=== PATIENT | male | born 1940 | race Caucasian/White ===

== ENCOUNTER 2019-09-16 02:46 | Inpatient (IN) | payer MEDICARE, SELFPAY ==
[2019-09-16] VITALS (22 sets, daily range): BP systolic 139–197; BP diastolic 70–111; PULSE 58–119; RESP 13–20; TEMP 36.3–37.2; O2SAT 94–98; BMI 31.1
--- NOTE | ~2019-09-16 | CT_ITS ---
EXAMINATION: CT brain wo con DATE: 09/16/2019 02:48 INDICATION: Slurred speech. TECHNIQUE: Computed tomography (CT) of the head was performed without intravenous contrast. The mA wa s adjusted according to patient size. Iterative reconstruction technique was employed. The dose-lengt h product was 681.00 mGy-cm. COMPARISON: None FINDINGS: There are scattered areas of low attenuation in the cerebral white matter. There are areas of cystic encephalomalacia in the deep white matter of the frontal lobes bilaterally. There is no int racranial hemorrhage, acute infarction, or abnormal intracranial mass lesion. The ventricles are norm al in size. The mastoid air cells are normal. The paranasal sinuses are clear. The orbits are normal. IMPRESSION: 1. Extensive nonspecific cerebral white matter disease, which likely represents chronic small vessel ischemic disease. 2. 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 Reviewed, dictated and finalized at location A. ING CLERK IMPRESSION: 1. Extensive nonspecific cerebral white matter disease, which likely represents chronic small vessel ischemic disease. 2. Cystic encephalomalacia in the deep white matter of the frontal lobes bilate rally.
--- NOTE | ~2019-09-16 | CT_ITS ---
EXAMINATION: CTA brain carotid DATE: 09/16/2019 03:48 INDICATION: Slurred speech. TECHNIQUE: Computed tomographic angiography (CTA) of the head was performed without and with 100 mL O mnipaque-350 intravenous contrast. CTA of the neck was performed with intravenous contrast. Automated exposure control and iterative reconstruction technique were employed. The dose-length product was 1 279.37 mGy-cm. Maximum intensity projection and volume rendered 3D-reconstructions were created by e technologist on a separate workstation. COMPARISON: Head CT 09/19/2018, brain MRI 09/20/2018 FINDINGS: HEAD CTA: There are scattered areas of low attenuation in the cerebral white matter. There are areas of cystic encephalomalacia in the deep white matter of the frontal lobes. There are old lacunar infar cts in the bilateral basal ganglia. There is no intracranial hemorrhage, acute infarction, or abnorma l intracranial mass lesion. The ventricles are normal in size. There is mild mucosal thickening in th e paranasal sinuses. The orbits are normal. The mastoid air cells are normal. Left vertebral artery i s dominant. There is no significant stenosis of basilar artery or the posterior cerebral arteries. Th e posterior communicating arteries are normal. There is no significant stenosis of the intracranial i nternal carotid arteries or anterior or middle cerebral arteries. Anterior communicating artery is no rmal. There is no aneurysm. NECK CTA: There are no pathologically enlarged lymph nodes. There is a severe stenosis of the vertebr al arteries, but sensitivity is decreased by the late phase of contrast opacification. There is mild plaque in the proximal internal carotid arteries. There is 0% stenosis of the proximal right interna l carotid artery relative to normal distal artery lumen diameter (NASCET criteria). There is 0% steno sis of the proximal left internal carotid artery relative to normal distal artery lumen diameter. The re is moderate cervical spondylosis. IMPRESSION: 1. Extensive nonspecific cerebral white matter disease, which likely represents chronic small vessel ischemic disease. 2. Areas of cystic encephalomalacia in the deep white matter of the frontal lobes. Old lacunar infarc ts in the bilateral basal ganglia. 3. No aneurysm or significant intracranial arterial stenosis. 4. 0% stenosis of the proximal internal carotid arteries relative to normal distal artery lumen diam eters (NASCET criteria). Reviewed, dictated and finalized at location A. RINTENDENT DIVISION IMPRESSION: 1. Extensive nonspecific cerebral white matter disease, which likely represents chronic small vessel ischemic disease. 2. Areas of cystic encephalomalacia in the deep white matter of the frontal lob es. Old lacunar infarcts in the bilateral basal ganglia. 3. No aneurysm or significant intracranial arterial stenosis. 4. 0% stenosis of the proximal internal carotid arteries relative to normal di stal artery lumen diameters (NASCET criteria).
--- NOTE | ~2019-09-16 | MR_ITS ---
EXAMINATION: MR brain/brain stem wo/w con DATE: 09/16/2019 10:58 INDICATION: Dysarthria. TECHNIQUE: Magnetic resonance imaging (MRI) of the brain and brainstem was performed without and with 19 mL MultiHance intravenous contrast. Sequences included sagittal and axial T1-weighted FSE, axial diffusion-weighted FS EPI, axial T2*-weighted GRE, axial T2-weighted FLAIR Propeller, and axial T2-we ighted Propeller. Postcontrast sequences included axial and coronal T1-weighted FSE. Apparent diffusi on coefficient (ADC) maps were created. COMPARISON: Brain MRI 09/20/2018, head CT 09/16/2019 FINDINGS: There are small foci of old microhemorrhage in the chai. There are scattered areas of nonsp ecific increased T2-weighted signal intensity in the cerebral white matter. There are areas of cystic encephalomalacia involving the deep white matter of the frontal and parietal lobes. There are old la cunar infarcts in the bilateral basal ganglia. The orbits are normal. There is mild mucosal thickenin g in the paranasal sinuses. The mastoid air cells are normal. IMPRESSION: 1. Extensive nonspecific cerebral white matter disease, which likely represents chronic small vessel ischemic disease. 2. Areas of cystic encephalomalacia in the deep white matter of the frontal and parietal lobes. Old l acunar infarcts in the bilateral basal ganglia. 3. Foci of old microhemorrhage in the chai, which is most commonly secondary to hypertension. Reviewed, dictated and finalized at location A. ER TECHNOLOGY TEACHER IMPRESSION: 1. Extensive nonspecific cerebral white matter disease, which likely represents chronic small vessel ischemic disease. 2. Areas of cystic encephalomalacia in the deep white matter of the frontal and parietal lobes. Old lacunar infarcts in the bilateral basal ganglia. 3. Foci of old microhemorrhage in the chai, which is most commonly secondary to hypertension.
--- NOTE | 2019-09-16 02:36 | ED.NEUROSD ---
HPI - Neuro Symptoms/Deficit General Chief Complaint: Neuro Symptoms/Deficit Stated Complaint: slurred speech Time Seen by Provider: 09/16/19 02:46 Source: patient Mode of arrival: EMS Limitations: no limitations History of Present Illness HPI Narrative: A 79 y/o male presents to the ED, via EMS, with c/o slurred speech. He states that he woke up today at 0130 and had a weird feeling in his head and was shaky. Pt adds that he feels the shakiness, but is not physically shaking. He noticed he had slurred speech and contacted EMS. His last known normal was 2200 yesterday. Pt reports motion sickness, but denies numbness, otalgia, tinnitus, CP, SOB, and weakness. He has a PMHx of HTN, TIA, and CVA. Pt has balance issues, but notes that this is normal for him. Onset (ago): hour(s) (1) Last Observed Normal: 22:00 Location: speech Context: other (Awoke with symptoms) Associated symptoms: other ( Motion sickness, shaky, weird feeling in head) Related Data Allergies Allergy/AdvReac Type Severity Reaction Status Date / Time No Known Allergies Allergy Verified 09/16/19 03:01 Review of Systems Review of Systems: All systems reviewed & are unremarkable except as noted in HPI and below Constitutional: Constitutional: Reports other ( Motion sickness, shaky) ENT: Denies otalgia and Denies tinnitus Cardiovascular: Cardiovascular: Denies chest pain Respiratory: Respiratory: Denies dyspnea Neurologic: Reports Abnormal speech present (Slurred), Denies numbness, Denies weakness and Reports other ( Weird feeling in head) [facility] Past Medical History Medical History (Updated 09/16/19 @ 05:39 by Yassine Hodge MD) Cerebellar ataxia CVA (cerebral vascular accident) HTN (hypertension) Hx of Diggs's palsy TIA (transient ischemic attack) Surgical History Surgical History No pertinent past surgical history Family History Family History (Updated 09/16/19 @ 05:27 by Casey Moody MD) Father CKD (chronic kidney disease) Social History Social History Smoking status: Never smoker Alcohol intake: never Substance use: never Gender identity (if verbalized by the patient): Male Spiritual care concerns: No Agree to blood products: Yes Exam Const: General: no acute distress and alert Nutritional Appearance: well nourished Orientation/consciousness: patient oriented x3 HENMT: Mouth: Yes dry mucous membranes Eyes: Conjunctivae: conjunctivae normal Pupils: Equal, round and reactive pupils present Other: nystagmus Resp: Effort & Inspection: normal respiratory effort Auscultation: clear to auscultation bilaterally Cardio: Rate: regular rate Rhythm: regular rhythm GI: GI Palp: Yes Soft to palpation and No Tenderness to palpation present (GI) Neuro: General: patient oriented x3 and moves all extremities Cranial nerves: Yes Facial sensation intact/muscles of mastication intact, Yes Normal facial strength present, Yes facial symmetry and Yes Nystagmus present Cognition (Neuro): normal cognition Speech: Abnormal speech present slurred and other Motor exam (neuro): 5/5 motor strength present throughout Course Vital Signs Vital signs: Vital Signs Temperature 36.9 C 09/16/19 02:50 Pulse Rate 99 09/16/19 02:50 Respiratory Rate 20 09/16/19 02:50 Blood Pressure 195/111 H 09/16/19 02:50 Pulse Oximetry 96 09/16/19 02:50 Temperature 36.7 C 09/16/19 04:52 Pulse Rate 98 09/16/19 04:52 Respiratory Rate 20 09/16/19 04:52 Blood Pressure 146/83 H 09/16/19 04:52 Pulse Oximetry 97 09/16/19 04:52 MDM - Neuro Symptoms/Deficit MDM Narrative Medical decision making narrative: Symptoms are concerning for a stroke, although it is not clear cut and he is out of the window for TPA. I will get a CTA and if there is a large vessel occlusion I will call a center that has interventional ca
--- NOTE | 2019-09-16 02:56 | ECG_ITS ---
Measurements Intervals [place] Rate: 93 P: 72 MO: 145 QRS: -59 QRSD: 153 T: 9 QT: 398 QTc: 496 Interpretive Statements SINUS RHYTHM RIGHT BUNDLE BRANCH BLOCK LEFT ANTERIOR FASCICULAR BLOCK BASELINE ARTIFACT- II, III, AVR, AVL, AVF, V1-V3, V5 ABNORMAL ECG Electronically Signed On 09-16-2019 8:21:40 SOCIAL MEDIA EDITOR by Benedict Painting D.O.
[2019-09-16] MEDS: SODIUM CHLORIDE 0.9% IV 1,000 ML 999 ML IV CONT (03:05)
[2019-09-16] MEDS: ONDANSETRON INJ 4 MG/2 ML VIAL IV PUSH (03:06)
[2019-09-16] MEDS: ASPIRIN 81 MG CHEWABLE TABLET 324 MG PO (03:06)
[2019-09-16 03:18] LABS: Basophils Absolute Auto 0.1 K/mm3 (0.0-0.1); Basophils Percent Auto 1.1 % (0.2-1.2); Eosinophils Absolute Auto 0.7 K/mm3 (0-0.3); Eosinophils Percent Auto 9.1 % (0-4.4); Hematocrit 50.3 % (42.0-52.0); Hemoglobin 16.7 g/dL (14.0-18.0); Immature Granulocyte Absolute 0.01 K/mm3 (0.00-0.031); Immature Granulocyte Percent A 0.1 % (0-0.5); Lymphocytes Absolute Auto 2.96 K/mm3 (0.9-3.2); Lymphocytes Percent Auto 40.1 % (18.3-44.2); Mean Corpuscular HGB Conc 33.2 g/dl (32-36); Mean Corpuscular Hemoglobin 31.1 pg (26-34); Mean Corpuscular Volume 93.7 fl (80-100); Monocytes Absolute Auto 0.7 K/mm3 (0.1-0.6); Monocytes Percent Auto 9.5 % (2.6-8.5); Neutrophils Percent Auto 40.1 % (45.5-73.1); Platelet Count Result 245 k/mm3 (150-375); Red Blood Count 5.37 M/mm3 (4.6-6.20); Red Cell Distribution Width 13.8 % (11.5-14.5); White Blood Count 7.4 K/mm3 (4.5-10.0)
--- NOTE | 2019-09-16 03:18 | PC.NURSE ---
Patient unable to provide a urine specimen at this time. Patient a/o x3. Patient refusing straight cath at this time.
--- NOTE | 2019-09-16 03:25 | PC.NURSE ---
Patient in CT at this time.
[2019-09-16 03:27] LABS: Blood Urea Nitrogen 20 mg/dL (8-26); Estimated CRCL calculation 45 ml/min; Estimated Glomerular Filt Rate 49
[2019-09-16 03:39] LABS: Ethanol < 10 mg/dL (<10)
[2019-09-16 03:40] LABS: Partial Thromboplastin Time 28.8 SECONDS (22.3-36.8)
[2019-09-16 03:59] LABS: INR 0.9; Prothrombin Time 11.6 Seconds (11.1-14.7)
[2019-09-16 04:26] LABS: Alanine Aminotransferase 50 U/L (4-50); Albumin Level 4.2 g/dL (3.5-5.1); Alkaline Phosphatase 89 U/L (38-126); Aspartate Amino Transferase 44 U/L (17-59); Bilirubin,Total 0.6 mg/dL (0.2-1.3); Blood Urea Nitrogen 20 mg/dL (9-20); Calcium 8.9 mg/dL (8.4-10.2); Carbon Dioxide 28 mmol/L (22-30); Chloride 98 mmol/L (98-107); Estimated CRCL calculation 49 ml/min; Estimated Glomerular Filt Rate 53; Glucose 108 mg/dL (75-110); Potassium 3.9 mmol/L (3.4-5.0); Sodium 137 mmol/L (137-145)
[2019-09-16 04:38] LABS: Troponin I < 0.012 ng/mL (0.000-0.034)
[2019-09-16 04:59] LABS: Add Urine Microscopic? NO; Appearance Urine Clear (Clear); Bilirubin Urine Negative (Negative); Blood Urine Negative (Negative); Color Urine Yellow (Yellow); Glucose Urine UA Negative (Negative); Ketones Urine Negative (Negative); Leukocyte Esterase Ur Negative LEU/UL (Negative); Nitrate Urine Negative (Negative); Protein Urine Negative (Negative); Urobilinogen Urine Negative mg/dL (<2.0)
--- NOTE | 2019-09-16 05:17 | PM.IMHP ---
H&P: HPI History of Present Illness Chief complaint: slurred speech Narrative: This is a 79 year old male with known cerebellar ataxia and baseline dysarthria secondary to previous CVAs who presented to the hospital tonight after waking up with worsening slurred speech around 1:30 am this morning. He was last known to be at his baseline around 10:30 pm this past evening when he went to bed. He initially woke up very shaky and had a strange sensation in his head that he could not describe well. 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 On arrival to the ER the patient had routine labs drawn and CT brain performed which were virtually unremarkable. The patient was found to have elevated blood pressure in the ER tonight. His normal blood pressure is usually around 160s/80s according to him. He denies any swallowing difficulty, blurry vision, double vision, numbness, tingling, focal weakness, headache, neck stiffness, fevers, chills, cough, palpitations, chest pain, abdominal pain, facial droop, dysuria, hematuria, vomiting, diarrhea, rectal bleeding or back pain. His denies witnessing any seizure like symptoms, no tongue biting or loss of urine. He hasn't passed out recently and hasn't had any head trauma recently. ER provider has consulted Neurology. Review of Systems Review of Systems: All systems reviewed & are unremarkable except as noted in HPI and below PMFSH Past Medical History Medical History (Updated 09/16/19 @ 05:45 by Casey Moody MD) Cerebellar ataxia CVA (cerebral vascular accident) HTN (hypertension) Hx of Diggs's palsy TIA (transient ischemic attack) Surgical History Surgical History No pertinent past surgical history Family History Family History (Updated 09/16/19 @ 05:27 by Casey Moody MD) Father CKD (chronic kidney disease) Social History Social History Smoking status: Never smoker Alcohol intake: never Substance use: never Gender identity (if verbalized by the patient): Male Spiritual care concerns: No Agree to blood products: Yes Meds Home Medications and Allergies Allergies Allergy/AdvReac Type Severity Reaction Status Date / Time No Known Allergies Allergy Verified 09/16/19 03:01 Vital Signs Vital Signs - 24 hr 09/16/19 02:50 09/16/19 02:53 09/16/19 03:00 Temperature 36.9 C Pulse Rate 99 96 93 Respiratory Rate 20 17 15 Blood Pressure 195/111 H Pulse Oximetry 96 96 09/16/19 03:01 09/16/19 03:15 09/16/19 03:16 Temperature Pulse Rate 91 90 90 Respiratory Rate 17 15 16 Blood Pressure 184/92 H 197/97 H Pulse Oximetry 97 94 94 09/16/19 03:48 09/16/19 03:51 09/16/19 04:00 Temperature Pulse Rate 92 81 Respiratory Rate 13 14 13 Blood Pressure 171/70 H Pulse Oximetry 96 96 09/16/19 04:01 09/16/19 04:15 09/16/19 04:30 Temperature Pulse Rate 85 86 95 Respiratory Rate 13 18 18 Blood Pressure 160/83 H 146/83 H Pulse Oximetry 95 97 09/16/19 04:31 09/16/19 04:52 Temperature 36.7 C Pulse Rate 97 98 Respiratory Rate 19 20 Blood Pressure 146/83 H Pulse Oximetry 97 97 Exam Const: General: cooperative, alert and awake Nutritional Appearance: well nourished Orientation/consciousness: patient oriented x3 HENMT: Head: normal to inspection General nose exam: Normal external nose present Face and sinus: abnormal facial exam (Mild right ptosis of eyelid which his says is chronic+) Mouth: Yes Normal oral and palatal mucosa present and Yes oropharynx normal Eyes: Pupils: Equal, round and reactive pupils present EOM: EOMs intact bilaterally Neck: Neck: supple and no JVD Thyroid: thyroid normal Lymphatic: lymphadenopathy not noted Resp: Effort & Inspection: normal respiratory effort Auscultation: clear to auscul
[2019-09-16 05:22] LABS: Specific Grav Ur 1.046 (1.001-1.035)
[2019-09-16 06:53] LABS: Cholesterol 157 mg/dL (0-200); HDL Direct 53 mg/dL; Triglycerides 149 mg/dL (<150)
[2019-09-16 07:03] LABS: LDL Cholesterol Direct 44 mg/dL
[2019-09-16] MEDS: ATORVASTATIN 20 MG TABLET PO (09:15)
[2019-09-16] MEDS: ASPIRIN 81 MG ENTERIC TABLET PO (09:16)
[2019-09-16] MEDS: hydroCHLOROthiazide 12.5 MG CAPSULE PO (09:16)
[2019-09-16] MEDS: SPIRONOLACTONE 25 MG TABLET PO (09:16)
[2019-09-16] MEDS: lisinopriL 20 MG TABLET PO (09:16)
[2019-09-16 13:01] LABS: Hemoglobin A1C 5.6 % (<5.7)
--- NOTE | 2019-09-16 15:41 | PM.IMPN ---
Progress Note: A&P Assessment and Plan (1) Slurred speech: Code(s): R47.81 - Slurred speech Status: Acute Assessment and Plan: Could possibly be progression of his underlying disease. Could also be a basilar TIA. MR scan today showed no acute findings and CTA showed no occlusions in the carotids. Will obtain an echocardiogram. 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, unspecified Status: Chronic Assessment and Plan: Chronic ongoing degenerative, get opinion from Neurology (3) HTN (hypertension): Qualifiers: Hypertension type: unspecified Qualified Code(s): I10 - Essential (primary) hypertension Code(s): I10 - Essential (primary) hypertension Status: Chronic Assessment and Plan: Blood pressure has come down but may need further adjustment meds because with no acute infarct watch tighter control of his pressure (4) DVT prophylaxis: Code(s): Z29.9 - Encounter for prophylactic measures, unspecified Status: Acute Assessment and Plan: Lovenox Subjective Date/time seen: 09/16/19 15:41 Interval history: Date of visit 09/16/2019. 79-year-old hypertensive white male with history of cerebellar ataxia admitted with more acute onset slurring of speech. No other new focal findings. CT scan was unremarkable and his symptoms have returned to his baseline. Risk factors for cerebrovascular disease include his hypertension only. Exam Narrative: Exam Narrative: Blood pressure 154/90 pulse is 92 regular Pupils equal reactive to light sclera anicteric Mouth normal Lungs clear CV no murmurs Abdomen is soft nontender Extremities trace edema distal pulses 1+ Neuro alert cooperative speech slightly slurred which he says is his baseline Finger to nose is ataxic bilaterally, patient uses electric wheelchair home Affect appropriate Objective Data Vital Signs Vital Signs: Vital Signs - 24 hr 09/16/19 02:50 09/16/19 02:53 09/16/19 03:00 Temperature 36.9 C Pulse Rate 99 96 93 Respiratory Rate 20 17 15 Blood Pressure 195/111 H Pulse Oximetry 96 96 09/16/19 03:01 09/16/19 03:15 09/16/19 03:16 Temperature Pulse Rate 91 90 90 Respiratory Rate 17 15 16 Blood Pressure 184/92 H 197/97 H Pulse Oximetry 97 94 94 09/16/19 03:48 09/16/19 03:51 09/16/19 04:00 Temperature Pulse Rate 92 81 Respiratory Rate 13 14 13 Blood Pressure 171/70 H Pulse Oximetry 96 96 09/16/19 04:01 09/16/19 04:15 09/16/19 04:30 Temperature Pulse Rate 85 86 95 Respiratory Rate 13 18 18 Blood Pressure 160/83 H 146/83 H Pulse Oximetry 95 97 09/16/19 04:31 09/16/19 04:52 09/16/19 05:42 Temperature 36.7 C Pulse Rate 97 98 97 Respiratory Rate 19 20 Blood Pressure 146/83 H Pulse Oximetry 97 97 09/16/19 05:45 09/16/19 08:00 09/16/19 13:15 Temperature 37.2 C Pulse Rate 94 87 65 Respiratory Rate 18 Blood Pressure 155/91 H Pulse Oximetry 96 Meds/Results Medications: Active Medications Generic Name Dose Route Start Last Admin Trade Name Freq PRN Reason Stop Dose Admin Acetaminophen 650 mg 09/16/19 05:16 Tylenol Tablet PO Q4H PRN Mild Pain (1-3) or Fever Aspirin 81 mg 09/16/19 09:00 09/16/19 09:16 Aspirin Ec PO 81 mg QAM CHASITY Administration Atorvastatin Calcium 20 mg 09/16/19 09:00 09/16/19 09:15 Lipitor PO 20 mg DAILY CHASITY Administration Hydralazine HCl 10 mg 09/16/19 05:12 Apresoline Hcl Inj IV PUSH Q8H PRN see comments Hydrochlorothiazide 12.5 mg 09/16/19 09:00 09/16/19 09:16 Hydrochlorothiazide PO 12.5 mg QAM CHASITY Administration Lisinopril 20 mg 09/16/19 09:00 09/16/19 09:16 Prinivil PO 20 mg QAM CHASITY Administration Spironolactone 25 mg 09/16/19 09:00 09/16/19 09:16 Aldactone PO 25 mg DAILY CHASITY Administration Radiology Res
--- NOTE | 2019-09-16 19:33 | CONS_ITS ---
DATE OF CONSULTATION: 09/16/2019 HISTORY: A 79-year-old right-handed male has been admitted to [facility] through the emergency room for the complaints of worsening speech with the history that he was last known to be at baseline around 10:30 p.m. when he went to the bed. He woke up in the morning shaky with a strange sensation in his head. The patient does have ongoing history of cerebellar ataxia with baseline dysarthria and also vertiginous syndrome. On arrival in the emergency room, a CT scan of the brain was done, which was negative for the bleed, though his blood pressure was high. He had no difficulties in swallowing. No other neurological symptomatology or any seizure-like activity. As mentioned before, he has ongoing diagnosis of cerebellar ataxia, cerebrovascular accident, history of Diggs's palsy, and TIA in the past and also he is not a smoker, not a drinker. PHYSICAL EXAMINATION: GENERAL: Evaluation documented him to be afebrile. General physical examination was normal. VITAL SIGNS: Blood pressure 195/111, pulse ox 96%. HEENT: Head was normocephalic with no cranial bruit. Ear, nose, throat exam was normal. It was noted to have very mild ptosis of the right eyelid, which his attributed to chronic. Ear, nose and throat exam was normal. NECK: Supple. HEART: Regular. LUNGS: Clear. ABDOMEN: Soft. NEUROLOGICAL: He was awake and alert. His speech not dysphasic, not dysarthric, not dysphonic. Pupils are round and regular. Shirley of vision full. Extraocular full. Face symmetrical. Tongue midline. Motor examination revealed him to have no drift of 1 side or other side. Reflexes were symmetrical. He had difficulty in performing [id number]-mc-wgiu-[id number]-finger and also had difficulties in performing the gait. Evaluation up until now includes the routine CBC, which is normal. Basic metabolic panel with low sodium and low potassium. Random glucose 129. UA negative with 1046 specific gravity. MRI of the brain reveals extensive nonspecific white matter disease secondary to probably chronic small-vessel ischemic changes in addition to cystic encephalomalacia in the deep white matter of the frontal and parietal lobe and old lacunar infarct in basal ganglia, in addition to old microhemorrhage in the chai secondary to hypertension. His head and neck CTA reveals extensive nonspecific white matter disease. No aneurysm or intracranial stenosis and 0% stenosis of proximal bilateral internal carotid artery. At this stage, the patient is receiving aspirin 81 mg daily in addition to lisinopril 1 tablet b.i.d. along with hydrochlorothiazide and spironolactone 25 mg daily. IMPRESSION AND PLAN: The patient will continue the medication as such. He will benefit from the therapy. There is no evidence of any surgical intervention. Thank you very much for letting me evaluate this patient. HORACE PETE M.D. CHIEF MEDICAL DIRECTOR CHIEF MEDICAL DIRECTOR D I MT: Rishi
[2019-09-16] MEDS: ENOXAPARIN 40 MG/0.4 ML SYRINGE SUB-Q (20:56)
[2019-09-17] VITALS: PULSE 57
--- NOTE | 2019-09-17 | ECHO_ITS ---
Patient Info Name: Arnel Marquez Age: 79 years : 1940 Gender: Male Ht: 71 in Wt: 220 lbs BSA: 2.26 m2 HR: 65 bpm BP: 149 / 83 mmHg Heart Rhythm: Sinus Rhythm Technical Quality: Good Exam Date: 09/17/2019 3:10 PM Exam Location: [facility] Pulmonary Patient Status: Inpatient Admit Date: 09/16/2019 Staff Ordering Physician: Jose Lincoln MD Chief Medical Physicist: Man Turner RDCS Attending Provider: Casey Moody MD Referring Physician: Latonia HIGH; Exam Type: CA echo doppler color flow Study Info Indications 435.9 - TIA Complete two-dimensional, color flow and Doppler transthoracic echocardiogram is performed. History/Risk Factors CVA; HTN. Summary 1. Left ventricular systolic function is hyperdynamic, estimated at >70%. 2. The left ventricular diastolic function is grade I diastolic dysfunction. 3. Left atrial chamber dimension is mildly enlarged. 4. There is mild aortic valve sclerosis. 5. Compared with last year , no difference seen. Left Ventricle Left ventricular chamber dimension is normal. Left ventricular systolic function is hyperdynamic, estimated at >70%. There is moderate concentric increased left ventricular wall thickness. The left ventricular diastolic function is grade I diastolic dysfunction. Right Ventricle Right ventricular chamber dimension is normal. Left Atria Left atrial chamber dimension is mildly enlarged. Right Atria Right atrial chamber dimension is normal. Aortic Valve The aortic valve is trileaflet. There is mild aortic valve sclerosis. Pulmonic Valve The pulmonic valve is not well visualized. Mitral Valve The mitral valve has normal leaflets and calcified annulus. Tricuspid Valve The tricuspid valve leaflets are normal. Pericardium/Pleural The pericardium appears normal. Aorta The aortic root size at the sinus of Valsalva is normal. Left Ventricular Outflow Tract Name Value Normal LVOT 2D LVOT Diameter 2.1 cm LVOT Doppler LVOT Peak Gradient 4 mmHg LVOT Mean Gradient 3 mmHg LVOT VTI 18 cm LVOT VTI/AV VTI Ratio 0.6 LVOT Stroke Volume 63 ml LVOT CO 3.8 l/min LVOT CI 1.7 l/min/m2 Mitral Valve Name Value Normal MV Doppler MV Decel [place] 315 cm/s2 MV PHT 68 ms MV Area (PHT) 3.2 cm2 4.0-5.0 MV Diastolic Function MV E Peak Velocity 74 cm/s MV A Peak Velocity 67 cm/s MV E/A 1.1 MV Dece
[2019-09-17 04:00] VITALS: PULSE 58
[2019-09-17 06:00] VITALS: BP 149/83; PULSE 56; RESP 16; TEMP 36.3; O2SAT 99
[2019-09-17 06:24] LABS: Basophils Absolute Auto 0.1 K/mm3 (0.0-0.1); Basophils Percent Auto 0.8 % (0.2-1.2); Eosinophils Absolute Auto 0.4 K/mm3 (0-0.3); Eosinophils Percent Auto 6.7 % (0-4.4); Hematocrit 45.5 % (42.0-52.0); Hemoglobin 15.3 g/dL (14.0-18.0); Immature Granulocyte Absolute 0.01 K/mm3 (0.00-0.031); Immature Granulocyte Percent A 0.2 % (0-0.5); Lymphocytes Absolute Auto 2.09 K/mm3 (0.9-3.2); Lymphocytes Percent Auto 34.1 % (18.3-44.2); Mean Corpuscular HGB Conc 33.6 g/dl (32-36); Mean Corpuscular Hemoglobin 31.5 pg (26-34); Mean Corpuscular Volume 93.6 fl (80-100); Monocytes Absolute Auto 0.6 K/mm3 (0.1-0.6); Monocytes Percent Auto 9.8 % (2.6-8.5); Neutrophils Percent Auto 48.4 % (45.5-73.1); Platelet Count Result 207 k/mm3 (150-375); Red Blood Count 4.86 M/mm3 (4.6-6.20); Red Cell Distribution Width 13.5 % (11.5-14.5); White Blood Count 6.1 K/mm3 (4.5-10.0)
[2019-09-17 06:36] LABS: Blood Urea Nitrogen 20 mg/dL (9-20); Calcium 8.9 mg/dL (8.4-10.2); Carbon Dioxide 28 mmol/L (22-30); Chloride 99 mmol/L (98-107); Estimated CRCL calculation 49 ml/min; Estimated Glomerular Filt Rate 53; Glucose 88 mg/dL (75-110); Potassium 3.5 mmol/L (3.4-5.0); Sodium 136 mmol/L (137-145)
[2019-09-17 08:00] VITALS: PULSE 56; PULSE 60; PULSE 71; RESP 16; O2SAT 99
[2019-09-17] MEDS: ASPIRIN 81 MG ENTERIC TABLET PO (09:45)
[2019-09-17] MEDS: SPIRONOLACTONE 25 MG TABLET PO (09:45)
[2019-09-17] MEDS: hydroCHLOROthiazide 12.5 MG CAPSULE PO (09:45)
[2019-09-17] MEDS: lisinopriL 20 MG TABLET PO (09:46)
[2019-09-17] MEDS: ATORVASTATIN 20 MG TABLET PO (09:46)
[2019-09-17] MEDS: POTASSIUM CHLORIDE 20 MEQ TABLET 40 MEQ PO (09:48)
[2019-09-17 14:00] VITALS: BP 150/89; PULSE 67; RESP 18; TEMP 36.8; O2SAT 97
--- NOTE | 2019-09-25 18:19 | PM.DS ---
DS: Diagnosis Admitting Diagnosis Admitting Diagnosis: Slurred speech Discharge Diagnosis (1) Slurred speech: Code(s): R47.81 - Slurred speech Status: Acute Assessment and Plan: Could possibly be progression of his underlying disease. Could also be a basilar TIA. MR scan today showed no acute findings and CTA showed no occlusions in the carotids. Echo revealed no source of emboli is on aspirin daily and added statin . 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 Patient and refused inpatient therapy (3) HTN (hypertension): Qualifiers: Hypertension type: unspecified Qualified Code(s): I10 - Essential (primary) hypertension Code(s): I10 - Essential (primary) hypertension Status: Chronic Assessment and Plan: Blood pressure has come down but may need further adjustment meds because with no acute infarct but will follow with primary care 2 no make that determination DS: Summary Hospital Course Hospital Course: 79-year-old white male with chronic cerebellar ataxia admitted with increasing slurring of speech. Symptoms resolved and MR was negative, echo was negative, patient returned to baseline. Uncertain whether possible TIA are progression of his underlying disease. Statin added to his regime and he will follow-up with his primary care for further chest but and blood pressure Time Spent with Patient Time attestation: Total time spent providing and/or coordinating discharge services: 35 minutes Exam Narrative: Exam Narrative: Condition on discharge blood 150/74 pulse is 80 Lungs clear CV regular rate rhythm Neuro exam no change in ataxia Discharge Plan Discharge Attending physician on discharge: Jose Lincoln Consulting providers: Isai Marshall ; [employer] ; Jeovany Castro V. ; Ty Torres Discharging Clinician: Jose Lincoln Patient Disposition: Home Health Service Activity: as tolerated Diet: low sodium Discharge Instructions: Care Coordination: Pt. 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 [phone]. They will contact patient to setup first appointment. Follow up with gis application developer Dr Hodges for blood pressure Patient Instructions: Antibiotic Form, Pain Management (DC), Weakness (DC) Stand Alone Forms: General Discharge Information Follow-up/Referrals: UNKNOWN,DOCTOR [Primary Care Provider] - Keep Reg. Scheduled Appt. Discharge Medications: New atorvastatin 20 mg Tablet 20 mg PO DAILY Qty: 30 RF: 0 Continued lisinopril-hydrochlorothiazide 20-12.5 mg Tablet 1 tablet PO BID RF: 0 spironolactone 25 mg Tablet 25 mg PO DAILY RF: 0 aspirin [Aspirin Low Dose] 81 mg Tablet,Delayed Release (Dr/Ec) 81 mg PO DAILY RF: 0 Date of admission: 09/16/19 04:33 Primary Care Provider: UNKNOWN,DOCTOR Admitting Provider: Casey Moody Discharge Date/Time: 09/17/19 17:00 Attending physician on admission: Jose Lincoln Condition: Stable Quality VTE Prophylaxis VTE prophylaxis: mechanical ordered
== END 2019-09-17 17:00 | disposition home health service (06) | DRG 69 ==
LOC: ANHED 03:28 → ANH3MEDSUR 04:54
PROVIDERS: Admitting Provider Family Medicine; Emergency Provider Emergency Medicine; Visit Provider Internal Medicine
DX: G45.9 Transient cerebral ischemic attack, unspecified (principal); G11.9 Hereditary ataxia, unspecified; R47.81 Slurred speech; I69.322 Dysarthria following cerebral infarction; I10 Essential (primary) hypertension; H55.00 Unspecified nystagmus
CPT/HCPCS: 36415; 70450; 70496; 70498; 70553; 80048; 80053; 80061; 80307; 81003; 83036; 84443; 84484; 85025; 85610; 85730; 93005; 93306; 96374; 96375; 97110; 97162; 97166; 97530; 99285; A9270; A9577; J1650; J2405; J3360; J7030; Q9967

== ENCOUNTER 2019-10-29 19:21 | Observation (INO) | payer MEDICARE, SELFPAY ==
[2019-10-29 19:21] VITALS: BP 141/101; PULSE 83; RESP 18; TEMP 36.6; O2SAT 92
[2019-10-29 19:59] LABS: Hematocrit 48.9 % (42.0-52.0); Hemoglobin 16.5 g/dL (14.0-18.0); Mean Corpuscular HGB Conc 33.7 g/dl (32-36); Mean Corpuscular Hemoglobin 31.3 pg (26-34); Mean Corpuscular Volume 92.6 fl (80-100); Mean Platelet Volume 9.8 fl (7.4-10.4); Platelet Count Result 187 k/mm3 (150-375); Red Blood Count 5.28 M/mm3 (4.6-6.20); Red Cell Distribution Width 13.1 % (11.5-14.5); White Blood Count 5.9 K/mm3 (4.5-10.0)
[2019-10-29 20:08] LABS: Band Neutrophils Percent 1 % (0-6); Monocytes Percent Manual 17 % (3-9); Neutrophils Absolute Manual 3.89 K/mm3 (1.3-6.7); Neutrophils Percent Manual 65 % (46-73); Platelet Estimate Adequate (Adequate); Total Cells Counted 100
[2019-10-29 20:11] LABS: Alanine Aminotransferase 53 U/L (4-50); Albumin Level 4.7 g/dL (3.5-5.1); Alkaline Phosphatase 70 U/L (38-126); Aspartate Amino Transferase 49 U/L (17-59); Bilirubin,Total 0.8 mg/dL (0.2-1.3); Blood Urea Nitrogen 17 mg/dL (9-20); Calcium 9.3 mg/dL (8.4-10.2); Carbon Dioxide 25 mmol/L (22-30); Chloride 96 mmol/L (98-107); Estimated Glomerular Filt Rate 49; Glucose 115 mg/dL (75-110); Lipase 76 U/L (23-300); Potassium 3.6 mmol/L (3.4-5.0); Sodium 138 mmol/L (137-145)
--- NOTE | 2019-10-29 20:26 | ED.NAVMDI ---
HPI - Nausea/Vomiting/Diarrhea General Chief complaint: Nausea/Vomiting/Diarrhea Stated complaint: vomiting Time Seen by Provider: 10/29/19 20:25 Source: family and RN notes reviewed Mode of arrival: EMS Limitations: no limitations History of Present Illness HPI Narrative: Pt is a 79 y/o male who presents to the ED, via EMS, with c/o nausea and vomiting that began yesterday morning. Pt's family was at bedside and provided the information. Pt cannot keep down anything down. Pt's family reports the pt has been sitting in his wheelchairs for days and he only gets out of the wheelchair to use the bathroom. Pt uses a walker and a wheelchair to ambulate. Pt reports fatigue and a bed sore on his bottom, but denies a fever and chills. MD elicited complaint: nausea and vomiting Onset (ago): day(s) (1) Associated nausea: Yes Associated symptoms: fatigue and other (bed sore on his bottom) Related Data Home Medications Medication Instructions Recorded Confirmed aspirin [Aspirin Low Dose] 81 mg PO DAILY 09/16/19 09/16/19 lisinopril-hydrochlorothiazide 1 tablet PO BID 09/16/19 09/16/19 spironolactone 25 mg PO DAILY 09/16/19 09/16/19 Allergies Allergy/AdvReac Type Severity Reaction Status Date / Time No Known Allergies Allergy Verified 10/29/19 19:26 Review of Systems Review of Systems: All systems reviewed & are unremarkable except as noted in HPI and below Constitutional: Constitutional: Denies chills and Denies fever(s) Gastrointestinal: Gastrointestinal: Reports nausea and Reports vomiting Integumentary/Breasts: Skin/Breast: Reports sores (bed sore on his bottom) [facility] Past Medical History Medical History (Updated 10/29/19 @ 21:06 by Henry Peralta MD) Anxiety Cerebellar ataxia CVA (cerebral vascular accident) HTN (hypertension) Hx of Diggs's palsy TIA (transient ischemic attack) Surgical History Surgical History No pertinent past surgical history Family History Family History (Updated 09/16/19 @ 05:27 by Casey Moody MD) Father CKD (chronic kidney disease) Social History Social History Smoking status: Never smoker Alcohol intake: never Substance use: never Gender identity (if verbalized by the patient): Male Spiritual care concerns: No Agree to blood products: Yes Exam Const: General: no acute distress and alert Orientation/consciousness: patient oriented x3 HENMT: Head: normal to inspection Eyes: Pupils: Equal, round and reactive pupils present Chest: Chest palpation & inspection: normal inspection of the chest Resp: Effort & Inspection: normal respiratory effort Auscultation: clear to auscultation bilaterally Cardio: Rate: regular rate GI: GI Palp: Yes Soft to palpation Other: sacaral and perianal area is red wagnor Stage 1 Back/Spine/Pelvis: Back: no CVA tenderness Skin: General skin exam: normal color Neuro: General: patient oriented x3, moves all extremities and CN's II-XI intact bilaterally Psych: Mental Status: mental status grossly normal Course Course Emergency Course: Patient's daughter states that he has had no energy he is unable to ambulate even with 2 person assist. Is been on wheelchair all day long. Patient daughter states that his is out of town. Consultations Consultation #1: Discussed case with Dr. Moody (Hospitalist). Accepts admission. Date: 10/29/19 Time: 20:56 Vital Signs Vital signs: Vital Signs Temperature 36.6 C 10/29/19 19:21 Pulse Rate 83 10/29/19 19:21 Respiratory Rate 18 10/29/19 19:21 Blood Pressure 141/101 H 10/29/19 19:21 Pulse Oximetry 92 10/29/19 19:21 Temperature 36.6 C 10/29/19 19:21 Pulse Rate 83 10/29/19 19:21 Respiratory Rate 18 10/29/19 19:21 Blood Pressure 141/101 H 10/29/19 19:21 Pulse Oximetry 92 10/29/19 19:21 MDM - Nausea/Vomiting/Diarrhea Lab Data Result diag
[2019-10-29] MEDS: SODIUM CHLORIDE 0.9% IV 1,000 ML 150 ML IV CONT (20:59)
--- NOTE | 2019-10-29 21:15 | PC.NURSE ---
pt unable to void
[2019-10-29 21:16] VITALS: BP 167/97; PULSE 83; RESP 18; O2SAT 97
--- NOTE | 2019-10-29 21:42 | PC.NURSE ---
pt refusing straight cath
--- NOTE | 2019-10-29 21:47 | PC.NURSE ---
pt refused catheter and was unable to provide urine sample. Pt said he would try when he got admitted.
[2019-10-29 21:57] VITALS: BP 160/108; PULSE 77; RESP 16; O2SAT 98
[2019-10-29 22:00] VITALS: BP 161/85; PULSE 69; RESP 18; TEMP 37; O2SAT 93; BMI 31.6
--- NOTE | 2019-10-29 22:15 | ADMGEN ---
This patient, Arnel Marquez, was admitted to 3 Med Surg Room 303-02. Patient/family oriented to hospital policies and general routines including ID bracelet, bed and alarms, visiting hours, pain management, procedures, bathroom and other care routines, personal items, smoking policy, room service/diet, and visiting hours. Valuables list has been completed. Information on how to activate the Rapid Response Team has been discussed. Patient/Family are encouraged to report perceived risks to care and to ask questions if they do not understand what they are told or what they should do.
--- NOTE | 2019-10-30 01:12 | PM.IMHP ---
H&P: HPI History of Present Illness Chief complaint: influenza,weakness Narrative: This is a 79 year old male with known ataxia and wheelchair bound presented to the hospital secondary to generalized weakness, nausea and vomiting that had started yesterday morning. Apparently the patient hasn't eaten anything for the past two days and hasn't gotten out of his wheelchair because he was too weak. He denies any chest pain, coughing, shortness of breath, sore throat, ear pain, abdominal pain, dysuria, hematuria, rectal bleeding or LE edema. He has had some constipation recently. The [facility] and found to be influenza A positive. He has not had an influenza vaccination this year. We have been asked to admit the patient to the hospital [facility] as the family states they cannot care for him at home. He has no other complaints. Review of Systems Review of Systems: All systems reviewed & are unremarkable except as noted in HPI and below PMFSH Past Medical History Medical History Anxiety Cerebellar ataxia CVA (cerebral vascular accident) HTN (hypertension) Hx of Diggs's palsy TIA (transient ischemic attack) Surgical History Surgical History No pertinent past surgical history Family History Family History Father CKD (chronic kidney disease) Social History Social History Smoking status: Never smoker Alcohol intake: never Substance use: never Gender identity (if verbalized by the patient): Male Spiritual care concerns: No Agree to blood products: Yes Meds Home Medications and Allergies Home Medications Medication Instructions Recorded Confirmed Type aspirin [Aspirin Low Dose] 81 mg PO DAILY 09/16/19 10/29/19 History lisinopril-hydrochlorothiazide 1 tablet PO BID 09/16/19 10/29/19 History spironolactone 25 mg PO DAILY 09/16/19 10/29/19 History Allergies Allergy/AdvReac Type Severity Reaction Status Date / Time No Known Allergies Allergy Verified 10/29/19 19:26 Vital Signs Vital Signs - 24 hr 10/29/19 19:21 10/29/19 21:16 10/29/19 21:57 Temperature 36.6 C Pulse Rate 83 83 77 Respiratory Rate 18 18 16 Blood Pressure 141/101 H 167/97 H 160/108 H Pulse Oximetry 92 97 98 10/29/19 22:00 Temperature 37.0 C Pulse Rate 69 Respiratory Rate 18 Blood Pressure 161/85 H Pulse Oximetry 93 Exam Const: General: cooperative, comfortable and no acute distress Nutritional Appearance: well nourished HENMT: Head: normal to inspection and other (Tongue normal - no lacerations) Mouth: Yes Normal oral and palatal mucosa present Eyes: General: appearance normal, both eyes and all related structures Neck: Neck: normal visual inspection, no lymphadenopathy, supple, negative Brudzinski's sign and no JVD Chest: Chest palpation & inspection: normal inspection of the chest Resp: Effort & Inspection: normal respiratory effort Auscultation: clear to auscultation bilaterally Percussion: percussion normal Cardio: Jugular venous distension: no JVD Rate: regular rate Rhythm: regular rhythm Heart sounds: S1 normal heart sound present and S2 normal heart sound present GI: Inspection: normal to inspection GI Palp: No abdominal tenderness Auscultation: normal bowel sounds Skin: General skin exam: erythema (sacral++ ) Neuro: Speech: normal speech Motor exam (neuro): 5/5 motor strength present throughout, No tremor noted and No asterixis Sensory Exam: normal sensation; No Sensory deficit (Neuro) Deep tendon reflexes (DTR's): Right brachioradialis reflex intensity grade: 2+, Left brachioradialis reflex intensity grade: 2+, Right patellar reflex intensity grade: 2+ and Left patellar reflex intensity grade: 2+ Extrem: Right lower extremity: normal to inspect
[2019-10-30 05:54] VITALS: BP 132/61; PULSE 66; RESP 18; TEMP 36.9; O2SAT 95
[2019-10-30 06:02] LABS: Hematocrit 44.7 % (42.0-52.0); Mean Corpuscular HGB Conc 33.6 g/dl (32-36); Mean Corpuscular Hemoglobin 31.4 pg (26-34); Mean Corpuscular Volume 93.5 fl (80-100); Mean Platelet Volume 10.4 fl (7.4-10.4); Platelet Count Result 179 k/mm3 (150-375); Red Blood Count 4.78 M/mm3 (4.6-6.20); Red Cell Distribution Width 12.9 % (11.5-14.5); White Blood Count 4.8 K/mm3 (4.5-10.0)
[2019-10-30 07:11] LABS: Band Neutrophils Percent 5 % (0-6); Lymphocytes Absolute Manual 0.91 K/mm3 (1.1-4.5); Monocytes Absolute Manual 1.05 K/mm3 (0.1-0.90); Monocytes Percent Manual 22 % (3-9); Neutrophils Absolute Manual 2.83 K/mm3 (1.3-6.7); Neutrophils Percent Manual 54 % (46-73); Platelet Estimate Adequate (Adequate); Total Cells Counted 100
[2019-10-30] MEDS: SODIUM CHLORIDE 0.9% IV 1,000 ML 75 ML IV CONT (08:17)
[2019-10-30 08:37] LABS: Blood Urea Nitrogen 16 mg/dL (9-20); Calcium 8.4 mg/dL (8.4-10.2); Carbon Dioxide 26 mmol/L (22-30); Chloride 98 mmol/L (98-107); Estimated CRCL calculation 50 ml/min; Estimated Glomerular Filt Rate 53; Glucose 90 mg/dL (75-110); Potassium 3.6 mmol/L (3.4-5.0); Sodium 137 mmol/L (137-145)
[2019-10-30] MEDS: ASPIRIN 81 MG ENTERIC TABLET PO (10:13)
[2019-10-30] MEDS: SPIRONOLACTONE 25 MG TABLET PO (10:13)
[2019-10-30] MEDS: hydroCHLOROthiazide 12.5 MG CAPSULE PO (10:13)
[2019-10-30 14:00] VITALS: BP 129/77; PULSE 77; RESP 16; TEMP 36.6; TEMP 36.7; O2SAT 98
--- NOTE | 2019-10-30 14:56 | PM.DS ---
DS: Diagnosis Admitting Diagnosis Admitting Diagnosis: Influenza due to other identified influenza virus with other respiratory manifestations Discharge Diagnosis (1) Influenza A: Code(s): J10.1 - Influenza due to other identified influenza virus with other respiratory manifestations Status: Acute Assessment and Plan: Admit for observation for continue supportive care for influenza with IV fluid hydration, antiemetics, antipyretics. Today he is feeling well. He is eating and drinking without any issues. Denies anymore nausea or vomiting. He feels well hydrated from IV fluids and completely back to baseline. PT/OT evaluated the patient and he was standby guard and was able to transition to chair without any issues on his own. PT feels that he could be discharged home and he will be able to follow up with his outpatient PT next week as ordered by his PCP. He feels comfortable with discharge home at this time. The patient understands and agrees with the plan. All questions answered. (2) Weakness: Code(s): R53.1 - Weakness Status: Acute Assessment and Plan: Feeling better today. PT evaluated and he is stable for discharge home and will have outpatient PT next week. (3) Pressure ulcer of sacral region, stage 1: Code(s): L89.151 - Pressure ulcer of sacral region, stage 1 Status: Acute Assessment and Plan: Zinc oxide cream. Mepilex dressing. Will have patient continue applying zinc oxide cream to his sacral ulcer. Have him follow-up with his primary care provider. 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 (5) HTN (hypertension): Qualifiers: Hypertension type: unspecified Qualified Code(s): I10 - Essential (primary) hypertension Code(s): I10 - Essential (primary) hypertension Status: Chronic Assessment and Plan: Blood pressure has been stable today. Continue on home medications. DS: Summary Hospital Course Reason for hospitalization: The patient is a 79 year old man with a history of CVA, ataxia, who is wheelchair bound, who presented to the emergency room with nausea and vomiting for the last 2 days with associated generalized weakness and unable to tolerate anything by mouth for 2 days. Initial vitals showed temperature of 97.8?, BP 141/101, heart rate 83, respiratory rate 18, oxygen saturation 92% on room air. Initial labs showed normal CBC, CMP showed creatinine 1.4, BUN 17, glucose 115, ALT 53 otherwise normal. Influenza a was positive. He was admitted into the hospital under observation for some IV fluids, antiemetics, conservative management. This morning when I evaluated him he was feeling back to his baseline without any more nausea or vomiting. His labs were all stable. PT evaluated him and he was standby guard. He was discharged home to follow-up with his primary care within 1 week. Status at Discharge Cognitive/behavioral status at discharge: Stable, improved. Time Spent with Patient Time attestation: Total time spent providing and/or coordinating discharge services: Time spent: Greater than 30 minutes Exam Narrative: Exam Narrative: General: 79-year-old man sitting up in bed talking on the phone. Appears comfortable. In no acute distress. Skin: No jaundice or cyanosis. Good skin turgor. Neck: Full range of motion. Supple. Respiratory: Lungs are clear to auscultation bilaterally. No bony chest wall tenderness. Cardiovascular: The heart has a regular rate and rhythm without murmur. Lower extremities: No lower extremity edema. Distal puls
== END 2019-10-30 16:20 | disposition home or self-care (01) ==
LOC: ANHED 21:09 → ANH3MEDSUR 21:46
PROVIDERS: Emergency Medicine; Admitting Provider Family Medicine; Emergency Provider Family Medicine; PCP Internal Medicine; Visit Provider Internal Medicine
DX: J10.1 Influenza due to other identified influenza virus with other respiratory manifestations (principal); R53.1 Weakness; L89.151 Pressure ulcer of sacral region, stage 1; G11.9 Hereditary ataxia, unspecified; I10 Essential (primary) hypertension; Z79.82 Long term (current) use of aspirin; Z79.899 Other long term (current) drug therapy; Z86.73 Personal history of transient ischemic attack (TIA), and cerebral infarction without residual deficits; Z99.3 Dependence on wheelchair
CPT/HCPCS: 36415; 80048; 80053; 83690; 83735; 85025; 87804; 96360; 96361; 97161; 99285; A9270; G0378; J7030

== ENCOUNTER 2019-11-07 12:30 | Outpatient (RCR) | payer MEDICARE, SELFPAY ==
--- NOTE | 2019-11-01 09:11 | PTOPEVAL ---
PHYSICAL THERAPY EVALUATION AND PLAN OF CARE 11-01-2019 The PT evaluation was completed for the diagnosis of CVA. The plan of treatment for Physical Therapy is 2x/week for 4 weeks. Thank you for referring Arnel to [facility]. Please review, sign, date and return this plan of care ROSCOE. I agree with and certify that the following plan of care is medically necessary. Referring Physician Date Attending Provider: Mary Francisco, *PT Outpatient Evaluation Start: 11/01/19 08:06 Document 11/01/19 08:06 ALEJANDRA (Rec: 11/01/19 09:08 ALEJANDRA [id number]) Outpatient Past Medical History Neurological History Hx Cerebrovascular Accident (CVA) Yes Hx Other Neurological Disorders Yes: history of smaller,multiple cellebellar CVAs- Cardiovascular History Hx Hypertension Yes: meds, working on control, taking at home Respiratory History Hx Respiratory Disorders No Significant History Gastrointestinal History Hx Gastrointestinal Disorders No Significant History Genitourinary History Hx Genitourinary Disorders No Significant History Musculoskeletal History Hx Musculoskeletal Disorders No Significant History Hematological History Hx Hematological Disorders No Significant History Endocrine History Hx Endocrine Disorders No Significant History HEENT History Hx Other HEENT Disorders Yes: wear bifocal glasses Integumentary History Hx Shingles Yes Reproductive History Hx Reproductive Disorders No Significant History Psychosocial History Hx Anxiety Yes Pain History History of Any Previous or Ongoing No Significant History Instance of Pain Anesthesia History Hx Anesthesia Reactions No Significant History Other History Hx Other Medical Conditions Yes: [place] palsy x2 Evaluation Information Problem Diagnosis CVA Onset Aug 2019 Subjective Information called ambulance and Query Text:As Reported By Patient/ hospitalized, due to not being Family able to talk or walk; hospitalized, then had home health care PT, OT and ST services- discharged Oct 16, 2019; Prior Level of Function Activity Level (Last 3 Months) 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
--- NOTE | 2019-11-01 10:49 | STOPEVAL ---
SPEECH THERAPY INITIAL EVALUATION: Thank you for referring this patient to [facility] [place][Note 2]. Outpatient Speech Therapy is recommended 1-2x/week for 3 weeks in order to improve intelligibility in connected speech. Please review, sign, date and return this plan of care ROSCOE. I agree with and certify that the following plan of care is medically necessary. Referring Physician Date Admitting Provider: Attending Provider: Mary FranciscoMD Referring Provider: RIMMA Outpatient Evaluation Start: 11/01/19 10:24 Freq: Status: Active Protocol: Document 11/01/19 09:00 BECHERERT (Rec: 11/01/19 10:40 BECHERERT [id number]) Therapy Assessment Status Assessment Status Assessment Status Evaluation Outpatient Past Medical History Neurological History Hx Cerebrovascular Accident (CVA) Yes Hx Other Neurological Disorders Yes: history of smaller, celebrellar CVAs- slow affects Cardiovascular History Hx Hypertension Yes: meds, working on control, taking at home Respiratory History Hx Respiratory Disorders No Significant History Gastrointestinal History Hx Gastrointestinal Disorders No Significant History Genitourinary History Hx Genitourinary Disorders No Significant History Musculoskeletal History Hx Musculoskeletal Disorders No Significant History Hematological History Hx Hematological Disorders No Significant History Endocrine History Hx Endocrine Disorders No Significant History HEENT History Hx Other HEENT Disorders Yes: wear bifocal glasses Integumentary History Hx Shingles Yes Reproductive History Hx Reproductive Disorders No Significant History Psychosocial History Hx Anxiety Yes Pain History History of Any Previous or Ongoing No Significant History Instance of Pain Anesthesia History Hx Anesthesia Reactions No Significant History Other History Hx Other Medical Conditions Yes: Rew palsy x2 Pain Assessment Timing of Pain Assessment Timing of Pain Assessment Assessment Self Report Self Report Pain Level 0 Pain Scale Pain Scale Used Numeric (1 - 10) Pain Score Pain Score 0: Self Report Dysarthria Evaluation Oral-Motor Assessment Lip Structure Symmetrical Lip Color [place] Lip Moisture Dry Lip Protrusion Direction WNL,Range WNL,Rate WNL,Strength WNL Lip Lateralization Direction WNL,Range WNL,Rate WNL,Strength WNL Lip Compression Direction WNL,Range WNL,Rate WNL,Strength WNL Orthodontic/Dental Appliances Partial Dentures, Upper Temporomandibular Joint Description Normal Teeth Condition
--- NOTE | 2019-11-08 07:35 | PCPTNOTE ---
Patient did not show up for scheduled appointment this date.
--- NOTE | 2019-11-08 07:51 | PCSTNOTE ---
Patient called & cancelled scheduled appointment this date due to illness
--- NOTE | 2019-11-15 07:53 | PCPTNOTE ---
PHYSICAL THERAPY DISCHARGE 11-15-2019 Attending Provider: Mary Francisco, Patient:Arnel Marquez Date of :1940 Mrs. Marquez called and canceled her 's PT treatments due to him not feeling well and the coronavirus. Discussed with her to have him continue with his home exercises for leg strengthening, to increase walking as tolerated and to contact the dr if he continues to not feel well. Arnel will be discharged from therapy at this time. The goals were not assessed. Thank you for referring Mr. Marquez to [facility]. Please review, sign, date and return this discharge summary ROSCOE. I have been updated about the patient's current status and I agree with discharge from the above service at this time. Referring Physician Date
--- NOTE | 2019-11-15 09:40 | PCSTNOTE ---
OUTPATIENT SPEECH THERAPY DISCHARGE Attending Provider: Mary Francisco, Patient:Arnel Marquez Date of :1940 Patient has decided to not returned for any further treatments due to aparicio virus; therefore he will be discharged from therapy at this time. The goals have not been achieved. Arnel will be discharged from therapy at this time. The goals were not assessed. Thank you for referring Mr. Marquez to [facility]. Please review, sign, date and return this discharge summary ROSCOE. I have been updated about the patient's current status and I agree with discharge from the above service at this time. Referring Physician Date
== END 2019-11-15 14:29 | disposition home or self-care (01) ==
LOC: ANHST 12:30
PROVIDERS: PCP Internal Medicine; Visit Provider Internal Medicine
DX: I69.928 Other speech and language deficits following unspecified cerebrovascular disease (principal); G51.0 Bell's palsy; I10 Essential (primary) hypertension; R26.9 Unspecified abnormalities of gait and mobility
CPT/HCPCS: 92507; 92522; 97110; 97161

== ENCOUNTER 2020-11-08 18:15 | Observation (INO) | payer MEDICARE, SELFPAY ==
[2020-11-08] VITALS (16 sets, daily range): BP systolic 153–217; BP diastolic 89–134; PULSE 74–101; RESP 13–26; TEMP 36.6; O2SAT 93–97; BMI 29.2
--- NOTE | ~2020-11-08 | XR_ITS ---
EXAMINATION: XR chest 1V portable 11/08/2020 18:40 INDICATION: Weakness, nausea and slurred speech PROCEDURE: AP portable chest COMPARISON: No prior studies for comparison. FINDINGS: The lungs are clear. The cardiomediastinal silhouette is within normal limits. There are no pleural effusions. There is no pneumothorax suspected. IMPRESSION: 1: NO ACUTE CARDIOPULMONARY DISEASE. Reviewed, dictated and finalized at location A. E TENDER
--- NOTE | ~2020-11-08 | CT_ITS ---
EXAMINATION: CT brain wo con DATE: 11/08/2020 18:28 INDICATION: Slurred speech. Left-sided weakness. TECHNIQUE: Computed tomography (CT) of the head was performed without intravenous contrast. The dose- length product was 605.33 mGy-cm. Automated exposure control and iterative reconstruction technique w ere employed. COMPARISON: CT dated 09/16/2019 FINDINGS: Generalized atrophy. There are scattered severe periventricular and subcortical white matte r changes, most likely related to small vessel ischemic disease (microangiopathy). No ventriculomegal y or midline shift. There is intracranial atherosclerosis. Basilar cisterns are patent. Paranasal sin uses and mastoids are pneumatized. No depressed skull fractures. IMPRESSION: 1. No acute intracranial abnormality. 2: Chronic age-related findings. As per stroke protocol, I called these results to emergency room, discussed with Dr. Yassine schwarz MD at 11/08/2020 18:36 STUMP BLOWER. Reviewed, dictated and finalized at location A. P BLOWER IMPRESSION: 1. No acute intracranial abnormality. 2: Chronic age-related findings. As per stroke protocol, I called these results to emergency room, discussed wit h Dr. Yassine Hodge MD at 11/08/2020 18:36 STUMP BLOWER.
--- NOTE | ~2020-11-08 | CT_ITS ---
EXAMINATION: CTA brain carotid DATE: 11/08/2020 20:44 REVERSE ENGINEER INDICATION: Left arm weakness and slurred speech TECHNIQUE: Computed tomographic angiography (CTA) of the head was performed without and with 100 mL O mnipaque-350 intravenous contrast. CTA of the neck was performed with intravenous contrast. The dose- length product was 1122.55 mGy-cm. Maximum intensity projection and volume rendered 3D-reconstruction s were created by the technologist on a separate workstation. COMPARISON: CT head dated 11/08/2020. FINDINGS: HEAD CTA: There is mild intracranial atherosclerosis primarily involving the cavernous segments of th e internal carotid arteries. No significant stenosis, aneurysm or occlusion. No evidence for dissecti on. There is a dominant left vertebral artery. The basilar artery is diminutive, likely developmental . NECK CTA: There is mild atherosclerosis of the carotid arteries without evidence for significant sten osis or dissection. Thyroid gland is unremarkable. Lung apices are unremarkable. No cervical lymphade nopathy. Vertebral arteries are unremarkable. There is atherosclerosis of the aortic arch without sig nificant stenosis of the great vessels. There is less than 10 % stenosis of the proximal right internal carotid artery relative to normal dis bridgett artery lumen diameter (NASCET criteria). There is less than 10% stenosis of the proximal left int ernal carotid artery relative to normal distal artery lumen diameter. IMPRESSION: 1. Unremarkable CTA of the head and neck. No significant stenosis, occlusion, aneurysm or dissection. Reviewed, dictated and finalized at location A. RSE ENGINEER IMPRESSION: 1. Unremarkable CTA of the head and neck. No significant stenosis, occlusion, a neurysm or dissection.
--- NOTE | ~2020-11-08 | MR_ITS ---
EXAMINATION: MR brain/brain stem wo/w con DATE: 11/09/2020 08:39 INDICATION: Left arm ataxia. TECHNIQUE: Magnetic resonance imaging (MRI) of the brain and brainstem was performed without and with 19 mL MultiHance intravenous contrast. Sequences included sagittal and axial T1-weighted FSE, axial diffusion-weighted FS EPI, axial T2*-weighted GRE, axial T2-weighted FLAIR Propeller, and axial T2-we ighted Propeller. Postcontrast sequences included axial and coronal T1-weighted FSE. Apparent diffusi on coefficient (ADC) maps were created. COMPARISON: Brain MRI 09/16/2019, head CT 11/08/2020 FINDINGS: There is no acute ischemic infarct. There are small foci of old microhemorrhage in the chai . There are scattered areas of nonspecific increased T2-weighted signal intensity in the cerebral whi te matter. There are old lacunar infarcts in the bilateral basal ganglia. There is a cystic encephalo malacia involving the deep white matter of the frontal, parietal, and left temporal lobes. The ventri cles are normal in size. The orbits are normal. There is mild mucosal thickening in the paranasal sin uses. The mastoid air cells are normal. IMPRESSION: 1. Stable extensive nonspecific cerebral white matter disease, which likely represents chronic small vessel ischemic disease. 2. Areas of cystic encephalomalacia involving the deep cerebral white matter bilaterally. Old lacunar infarcts in the bilateral basal ganglia. 3. Foci of old microhemorrhage in the chai, which is most commonly secondary to hypertension. Reviewed, dictated and finalized at location A. IMPRESSION: 1. Stable extensive nonspecific cerebral white matter disease, which likely rep resents chronic small vessel ischemic disease. 2. Areas of cystic encephalomalacia involving the deep cerebral white matter bi laterally. Old lacunar infarcts in the bilateral basal ganglia. 3. Foci of old microhemorrhage in the chai, which is most commonly secondary to hypertension.
--- NOTE | 2020-11-08 18:20 | ED.NEUROSD ---
HPI - Neuro Symptoms/Deficit General Chief Complaint: Suspected CVA Stated Complaint: ?CVA Time Seen by Provider: 11/08/20 18:19 History of Present Illness HPI Narrative: 80 yo male w/ h/o CVA, ataxia, htn brought in by EMS for concerns about a stroke. It was originally reported that last known normal was 2 hours ago, but he tells me that he has felt this coming on for weeks. He presents with worsening weakness of the left arm, which already had residual deficit from previous stroke. He also has some speech difficulty, although he is able to communicate well. Related Data Home Medications Medication Instructions Recorded Confirmed aspirin [Aspirin Low Dose] 81 mg PO DAILY 09/16/19 10/29/19 lisinopril-hydrochlorothiazide 1 tablet PO BID 09/16/19 10/29/19 spironolactone 25 mg PO DAILY 09/16/19 10/29/19 Allergies Allergy/AdvReac Type Severity Reaction Status Date / Time No Known Allergies Allergy Verified 11/08/20 18:32 Review of Systems Review of Systems: All systems reviewed & are unremarkable except as noted in HPI and below Constitutional: Constitutional: Denies fever(s) Cardiovascular: Cardiovascular: Reports no additional cardiovascular complaints Respiratory: Respiratory: Reports no additional respiratory complaints Gastrointestinal: Gastrointestinal: Reports no additional gastrointestinal complaints Genitourinary: Genitourinary: Reports no additional male genitourinary complaints Neurologic: Reports as per HPI [facility] Past Medical History Medical History (Updated 11/08/20 @ 22:10 by Yassine Hodge MD) Anxiety Cerebellar ataxia CVA (cerebral vascular accident) HTN (hypertension) Hx of Diggs's palsy TIA (transient ischemic attack) Surgical History Surgical History No pertinent past surgical history Family History Family History Father CKD (chronic kidney disease) Social History Social History Smoking status: Never smoker Alcohol intake: never Substance use: never Gender identity (if verbalized by the patient): Male Spiritual care concerns: No Agree to blood products: Yes Exam Const: General: cooperative, no acute distress, alert and awake Nutritional Appearance: well nourished Orientation/consciousness: patient oriented x3 HENMT: Head: normal to inspection Neck: Neck: normal visual inspection Chest: Chest palpation & inspection: normal inspection of the chest Resp: Effort & Inspection: normal respiratory effort and able to speak in complete sentences Cardio: Rate: regular rate and bradycardic GI: GI Palp: No Tenderness to palpation present (GI) Skin: General skin exam: normal color Neuro: General: patient oriented x3, moves all extremities and CN's II-XI intact bilaterally Cognition (Neuro): normal cognition Speech: Abnormal speech present slurred Details: expressive aphasia (mild) Other: Moderate ataxia of LUE Course Vital Signs Vital signs: Vital Signs Temperature 36.6 C 11/08/20 18:15 Pulse Rate 101 H 11/08/20 18:15 Respiratory Rate 20 11/08/20 18:15 Blood Pressure 217/104 H 11/08/20 18:15 Pulse Oximetry 94 11/08/20 18:15 Temperature 36.6 C 11/08/20 18:15 Pulse Rate 75 11/08/20 22:00 Respiratory Rate 16 11/08/20 22:00 Blood Pressure 153/95 H 11/08/20 21:59 Pulse Oximetry 93 11/08/20 22:00 MDM - Neuro Symptoms/Deficit MDM Narrative Medical decision making narrative: No good start time plus new symptoms are difficult to distinguish from residual symptoms from previous stroke. I do not feel that he is a good TPA candidate given these concerns. Differential Diagnosis Differential diagnosis: Likely cerebrovascular accident and transient cerebral ischemia Medical Records Attestation: I reviewed the patient's medical records. Lab Data Attestation:
--- NOTE | 2020-11-08 18:32 | ECG_ITS ---
Measurements Intervals [place] Rate: 98 P: 83 FL: 172 QRS: -67 QRSD: 142 T: 28 QT: 376 QTc: 482 Interpretive Statements SINUS RHYTHM RIGHT BUNDLE BRANCH BLOCK LEFT ANTERIOR FASCICULAR BLOCK BASELINE ARTIFACT- I, II, III, AVR, AVL,A VF ABNORMAL ECG Electronically Signed On 11-09-2020 8:17:19 CDT by Benedict Painting D.O.
[2020-11-08 18:36] LABS: Glucose Point of Care 104 (65-105)
[2020-11-08 18:43] LABS: Basophils Absolute Auto 0.1 K/mm3 (0.0-0.1); Basophils Percent Auto 0.8 % (0.2-1.2); Eosinophils Absolute Auto 0.6 K/mm3 (0-0.3); Eosinophils Percent Auto 7.1 % (0-4.4); Hematocrit 49.6 % (42.0-52.0); Hemoglobin 17.1 g/dL (14.0-18.0); Immature Granulocyte Absolute 0.02 K/mm3 (0.00-0.031); Immature Granulocyte Percent A 0.2 % (0-0.5); Lymphocytes Absolute Auto 3.21 K/mm3 (0.9-3.2); Lymphocytes Percent Auto 37.1 % (18.3-44.2); Mean Corpuscular HGB Conc 34.5 g/dl (32-36); Mean Corpuscular Hemoglobin 32.1 pg (26-34); Mean Corpuscular Volume 93.2 fl (80-100); Mean Platelet Volume 9.5 fl (7.4-10.4); Monocytes Absolute Auto 0.9 K/mm3 (0.1-0.6); Monocytes Percent Auto 10.5 % (2.6-8.5); Neutrophils Absolute Auto 3.8 K/mm3 (1.3-6.7); Neutrophils Percent Auto 44.3 % (45.5-73.1); Platelet Count Result 230 k/mm3 (150-375); Red Blood Count 5.32 M/mm3 (4.6-6.20); White Blood Count 8.7 K/mm3 (4.5-10.0)
[2020-11-08 19:00] LABS: INR 0.8; Prothrombin Time 12.1 Seconds (11.1-14.7)
[2020-11-08] MEDS: LABETALOL HCL INJ 100 MG/20 ML VIAL 10 MG IV PUSH (19:00)
[2020-11-08 19:01] LABS: Partial Thromboplastin Time 28.6 SECONDS (22.3-36.8)
[2020-11-08 19:06] LABS: Anion Gap 6 mmol/L (8-16); Blood Urea Nitrogen 17 mg/dL (9-20); Calcium 9.6 mg/dL (8.4-10.2); Carbon Dioxide 29 mmol/L (22-30); Chloride 105 mmol/L (98-107); Estimated Glomerular Filt Rate 53; Glucose 105 mg/dL (75-110); Potassium 4.3 mmol/L (3.4-5.0); Sodium 140 mmol/L (137-145)
[2020-11-08 19:07] LABS: Troponin I 0.018 ng/mL (0.000-0.034)
[2020-11-08 19:18] LABS: Alanine Aminotransferase 89 U/L (4-50); Albumin Level 4.6 g/dL (3.5-5.1); Alkaline Phosphatase 81 U/L (38-126); Aspartate Amino Transferase 77 U/L (17-59); Bilirubin,Total 0.7 mg/dL (0.2-1.3)
[2020-11-08 21:24] LABS: Add Urine Microscopic? YES; Appearance Urine Clear (Clear); Bilirubin Urine Negative (Negative); Blood Urine Negative (Negative); Color Urine Yellow (Yellow); Glucose Urine UA Negative (Negative); Ketones Urine Negative (Negative); Leukocyte Esterase Ur Negative LEU/UL (Negative); Mucus Urine Rare /lpf; Nitrate Urine Negative (Negative); Protein Urine 1+ mg/dL (Negative); RBC Urine 0-2 /hpf (0-2); Urobilinogen Urine Negative mg/dL (<2.0); WBC Urine 0-3 /hpf
[2020-11-08 21:26] LABS: Specific Grav Ur 1.032 (1.001-1.035)
--- NOTE | 2020-11-08 23:22 | ADMGEN ---
This patient, Arnel Marquez, was admitted to Medical Room 248-. Patient/family oriented to hospital policies and general routines including ID bracelet, bed and alarms, visiting hours, pain management, procedures, bathroom and other care routines, personal items, smoking policy, room service/diet, and visiting hours. Information on how to activate the Rapid Response Team has been discussed. Patient/Family are encouraged to report perceived risks to care and to ask questions if they do not understand what they are told or what they should do.
[2020-11-09] VITALS (10 sets, daily range): BP systolic 142–177; BP diastolic 61–85; PULSE 59–78; RESP 16–18; TEMP 36.2–36.9; O2SAT 96–97
--- NOTE | 2020-11-09 00:56 | PM.IMHP ---
H&P: HPI History of Present Illness Date/Time: 11/09/20 00:56 Chief Complaint: LUE weakness+ Narrative: This is a 79 year old male with known ataxia and wheelchair bound presented to the hospital secondary to stroke like symptoms that started 2 hours prior to arrival to the hospital. The patient complained that he was sitting in a chair when suddenly this afternoon he couldn't lift his left arm. The patient is known to have dysarthria and weakness from a previous stroke. The patient denies any fevers, chills, blurry vision, double vision, worsening dysarthria, chest pain, cough, shortness of breath, abdominal pain, nausea, vomiting, diarrhea, rectal bleeding, numbness, tingling, syncope, or seizure like symptoms. He does have chronic left sided ptosis which he states is secondary to having [place] palsy x 2. The patient was evaluated in the ER and routine labs were obtained. CT brain did not demonstrate any acute abnormality. Neurology, Dr. Marshall was consulted by ER provider. The patient's symptoms have completely resolved and he states that he is now back to his normal baseline. He has no other complaints. Review of Systems Review of Systems: All systems reviewed & are unremarkable except as noted in HPI and below PMFSH Past Medical History Medical History (Updated 11/09/20 @ 01:10 by Casey Moody MD) Anxiety Cerebellar ataxia CVA (cerebral vascular accident) HTN (hypertension) Hx of Diggs's palsy TIA (transient ischemic attack) Surgical History Surgical History No pertinent past surgical history Family History Family History Father CKD (chronic kidney disease) Sibling Heart disease Breast cancer Mother Lymphoma Social History Social History Smoking status: Never smoker Alcohol intake: never Substance use: never Gender identity (if verbalized by the patient): Male Spiritual care concerns: No Agree to blood products: Yes Meds Home Medications and Allergies Home Medications Medication Instructions Recorded Confirmed Type aspirin [Aspirin Low Dose] 81 mg PO DAILY 09/16/19 11/09/20 History lisinopril-hydrochlorothiazide 1 tablet PO BID 09/16/19 11/09/20 History spironolactone 25 mg PO DAILY 09/16/19 11/09/20 History Allergies Allergy/AdvReac Type Severity Reaction Status Date / Time No Known Allergies Allergy Verified 11/08/20 23:57 Vital Signs Vital Signs - 24 hr 11/08/20 18:15 11/08/20 18:30 11/08/20 20:43 Temperature 36.6 C Pulse Rate 101 H 95 79 Respiratory Rate 20 18 16 Blood Pressure 217/104 H Pulse Oximetry 94 96 95 11/08/20 20:44 11/08/20 20:45 11/08/20 20:46 Temperature Pulse Rate 80 79 78 Respiratory Rate 16 15 16 Blood Pressure 174/98 H 169/97 H Pulse Oximetry 94 96 94 11/08/20 21:00 11/08/20 21:02 11/08/20 21:03 Temperature Pulse Rate 87 88 95 Respiratory Rate 21 H 20 26 H Blood Pressure 204/134 H Pulse Oximetry 95 95 97 11/08/20 21:15 11/08/20 21:17 11/08/20 21:30 Temperature Pulse Rate 77 75 74 Respiratory Rate 19 15 16 Blood Pressure 161/92 H Pulse Oximetry 95 95 94 11/08/20 21:45 11/08/20 21:58 11/08/20 21:59 Temperature Pulse Rate 78 75 76 Respiratory Rate 16 15 13 Blood Pressure 163/89 H 153/95 H Pulse Oximetry 94 93 93 11/08/20 22:00 11/09/20 00:00 Temperature 36.3 C L Pulse Rate 75 72 Respiratory Rate 16 18 Blood Pressure 159/85 H Pulse Oximetry 93 97 Exam Const: General: cooperative, no acute distress, alert and awake Nutritional Appearance: well nourished Orientation/consciousness: patient oriented x3 HENMT: Head: normal to inspection General nose exam: Normal external nose present Face and sinus: other (right sided facial droop, ptosis) Mouth: Yes Normal oral and palatal mucosa present and Yes oropharynx normal
[2020-11-09] MEDS: ONDANSETRON INJ 4 MG/2 ML VIAL IV PUSH (03:30)
--- NOTE | 2020-11-09 03:38 | PC.NURSE ---
Daylight Savings Time For Daylight Savings Time Ending in the Fall - Clocks are moved back. For Daylight Savings Time Beginning in the Spring - Clocks are moved ahead. For [facility], the time of change occurs at 0200 hrs. Time is taken from the food server. This entry on the patient's chart recognizes the change in time reflected during documentation. Example: 2 entries for vital signs may be charted for 0200 hrs.
[2020-11-09 05:27] LABS: Basophils Absolute Auto 0.1 K/mm3 (0.0-0.1); Basophils Percent Auto 0.7 % (0.2-1.2); Eosinophils Absolute Auto 0.3 K/mm3 (0-0.3); Eosinophils Percent Auto 3.5 % (0-4.4); Hematocrit 44.9 % (42.0-52.0); Hemoglobin 15.2 g/dL (14.0-18.0); Immature Granulocyte Absolute 0.03 K/mm3 (0.00-0.031); Immature Granulocyte Percent A 0.3 % (0-0.5); Lymphocytes Absolute Auto 1.54 K/mm3 (0.9-3.2); Lymphocytes Percent Auto 15.8 % (18.3-44.2); Mean Corpuscular HGB Conc 33.9 g/dl (32-36); Mean Corpuscular Hemoglobin 31.3 pg (26-34); Mean Corpuscular Volume 92.4 fl (80-100); Mean Platelet Volume 9.3 fl (7.4-10.4); Monocytes Absolute Auto 0.8 K/mm3 (0.1-0.6); Monocytes Percent Auto 8.1 % (2.6-8.5); Neutrophils Percent Auto 71.6 % (45.5-73.1); Platelet Count Result 228 k/mm3 (150-375); Red Blood Count 4.86 M/mm3 (4.6-6.20); Red Cell Distribution Width 13.7 % (11.5-14.5); White Blood Count 9.7 K/mm3 (4.5-10.0)
[2020-11-09 05:43] LABS: Anion Gap 6 mmol/L (8-16); Blood Urea Nitrogen 15 mg/dL (9-20); Calcium 8.8 mg/dL (8.4-10.2); Carbon Dioxide 28 mmol/L (22-30); Chloride 104 mmol/L (98-107); Estimated CRCL calculation 43 ml/min; Estimated Glomerular Filt Rate 53; Glucose 123 mg/dL (75-110); Potassium 4.3 mmol/L (3.4-5.0); Sodium 138 mmol/L (137-145)
--- NOTE | 2020-11-09 09:42 | PM.IMPN ---
Progress Note: A&P Assessment and Plan (1) Ataxia of left upper extremity: Code(s): R27.0 - Ataxia, unspecified Status: Resolved Assessment and Plan: r/o TIA. ABCD2 score 6 - The patient has been placed in observation status. Neurochecks. Telemetry. Continue ASA therapy. Monitor blood pressure closely overnight. Neurology has been consulted by ER provider. Continue Neurology recommendations. Symptoms have resolved completely. We continue with the workup of TIA. Monitor signs of stroke. 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 (3) HTN (hypertension): Qualifiers: Hypertension type: unspecified Qualified Code(s): I10 - Essential (primary) hypertension Code(s): I10 - Essential (primary) hypertension Status: Chronic Assessment and Plan: Monitor blood pressure. 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 Additional Plan Plan is to continue workup for TIA versus stroke. Neurology consult has been ordered. Will start physical therapy. Reconciliation of his home meds was done. Subjective Date/time seen: 11/09/20 09:42 Interval history: Patient was seen during the morning rounds today. Patient complains of having ataxia and stroke-like symptoms have completely resolved now. Patient denies any weakness, numbness. Patient denies any shortness of breath or chest pain. No nausea vomiting. Mood stable. Review of Systems Review of Systems: All systems reviewed & are unremarkable except as noted in HPI and below Exam Const: General: cooperative, no acute distress, alert and awake Nutritional Appearance: well nourished Orientation/consciousness: patient oriented x3 HENMT: Head: normal to inspection General nose exam: Normal external nose present Face and sinus: other (right sided facial droop, ptosis) Mouth: Yes Normal oral and palatal mucosa present and Yes oropharynx normal Eyes: Pupils: Equal, round and reactive pupils present EOM: EOMs intact bilaterally Neck: Neck: supple and no JVD Thyroid: thyroid normal Lymphatic: lymphadenopathy not noted Resp: Effort & Inspection: normal respiratory effort Auscultation: clear to auscultation bilaterally Cardio: Rate: regular rate Rhythm: regular rhythm Heart sounds: no murmurs GI: Inspection: normal to inspection Auscultation: normal bowel sounds Skin: General skin exam: normal color and no rashes or lesions noted Neuro: General: patient oriented x3 Cranial nerves: Yes CN's II-XII intact bilaterally and Yes Equal, round and reactive pupils present Speech: dysarthria Motor exam (neuro): 5/5 motor strength present throughout Sensory Exam: normal sensation Extrem: General: normal to inspection and no edema Psych: Mental Status: mental status grossly normal Affect: normal affect Objective Data Vital Signs Vital Signs: Vital Signs - 24 hr 11/08/20 18:15 11/08/20 18:30 11/08/20 20:43 Temperature 36.6 C Pulse Rate 101 H 95 79 Respiratory Rate 20 18 16 Blood Pressure 217/104 H Pulse Oximetry 94 96 95 11/08/20 20:44 11/08/20 20:45 11/08/20 20:46 Temperature Pulse Rate 80 79 78 Respiratory Rate 16 15 16 Blood Pressure 174/98 H 169/97 H Pulse Oximetry 94 96 94 11/08/20 21:00 11/08/20 21:02 11/08/20 21:03 Temperature Pulse Rate 87 88 95 Respiratory Rate 21 H 20 26 H Blood Pressure 204/134 H Pulse Oximetry 95 95 97 11/08/20 21:15 11/08/20 21:17 11/08/20 21:30 Temperature Pulse Rate 77 75 74 Respiratory Rate 19 15 16 Blood Pressure 161/92 H Pulse Oximetry 95 95 94 11/08/20 21:45 11/08/20 21:58 11/08/20 21:59 Temperature Pulse Rate 78 75 76 Respiratory Rate 16 15 13 Blood Pressure 163/89 H 153/95 H Pulse Oximetry 94 93 93 11/08/20 22:00 11/09/20 00:
[2020-11-09] MEDS: ASPIRIN 81 MG CHEWABLE TABLET PO (12:49)
[2020-11-09] MEDS: lisinopriL 20 MG TABLET PO (17:26)
[2020-11-09] MEDS: hydroCHLOROthiazide 12.5 MG CAPSULE PO (17:26)
[2020-11-10] VITALS (8 sets, daily range): BP systolic 145–178; BP diastolic 65–80; PULSE 54–79; RESP 14–18; TEMP 36.3–36.7; O2SAT 95–96
--- NOTE | 2020-11-10 09:15 | WPDNEURCNPN ---
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, unspecified Status: Chronic (7) HTN (hypertension): Qualifiers: Hypertension type: unspecified Qualified Code(s): I10 - Essential (primary) hypertension Code(s): I10 - Essential (primary) hypertension Status: Chronic (8) Dysarthria: Code(s): R47.1 - Dysarthria and anarthria Status: Chronic (9) Vertigo: Code(s): R42 - Dizziness and giddiness Status: Chronic (10) Slurred speech: Code(s): R47.81 - Slurred speech Status: Acute Additional Plan bihemispheric stroke with underlying diabetes mellitus evaluation is being done treatment will be continued as such that is aspirin and will benefit from the physical therapy Consult date: 11/10/20 Time Seen: 09:00 HPI: Arnel Marquez is a 80 year old maleAdmitted to the hospital for the complaints of left upper extremity weakness, patient is known to have ataxia and is wheelchair-bound reportedly was sitting in chair when suddenly be staffed known could not lift his left upper extremity. Patient is known to have dysarthria and weakness from the previous stroke as well. Initial CT scan of the head in the emergency room revealed no acute abnormality, patient is known to have hypertension, he is not a drinker and not smoker, MRI documented extensive nonspecific white matter disease representing the chronic small-vessel ischemic changes along with cystic encephalomalacia involving the deep cerebral white matter bilaterally and old lacunar infarcts in bilateral basal ganglia additionally he was noted to have foci of old micro hemorrhages in the chai,Routine lab studies were unrewarding Review of Systems Review of Systems: All systems reviewed & are unremarkable except as noted in HPI and below PMFSH Past Medical History Medical History Anxiety Cerebellar ataxia CVA (cerebral vascular accident) HTN (hypertension) Hx of Diggs's palsy TIA (transient ischemic attack) Surgical History Surgical History No pertinent past surgical history Family History Family History Father CKD (chronic kidney disease) Sibling Heart disease Breast cancer Mother Lymphoma Social History Social History Smoking status: Never smoker Alcohol intake: never Substance use: never Gender identity (if verbalized by the patient): Male Spiritual care concerns: No Agree to blood products: Yes Meds Home Medications and Allergies Home Medications Medication Instructions Recorded Confirmed Type aspirin [Aspirin Low Dose] 81 mg PO DAILY 09/16/19 11/09/20 History lisinopril-hydrochlorothiazide 1 tablet PO BID 09/16/19 11/09/20 History spironolactone 25 mg PO DAILY 09/16/19 11/09/20 History Allergies Allergy/AdvReac Type Severity Reaction Status Date / Time No Known Allergies Allergy Verified 11/08/20 23:57 Vital Signs Vital Signs - 24 hr 11/09/20 12:00 11/09/20 14:00 11/09/20 16:00 Temperature 36.7 C Pulse Rate 70 60 60 Respiratory Rate 18 Blood Pressure 142/83 H Pulse Oximetry 97 11/09/20 17:24 11/09/20 20:00 11/09/20 20:44 Temperat
[2020-11-10] MEDS: SPIRONOLACTONE 25 MG TABLET PO (09:16)
[2020-11-10] MEDS: hydroCHLOROthiazide 12.5 MG CAPSULE PO (09:16)
[2020-11-10] MEDS: lisinopriL 20 MG TABLET PO (09:17)
[2020-11-10] MEDS: ASPIRIN 81 MG CHEWABLE TABLET PO (09:17)
[2020-11-10 10:21] LABS: Hematocrit 47.8 % (42.0-52.0); Hemoglobin 16.4 g/dL (14.0-18.0); Mean Corpuscular HGB Conc 34.3 g/dl (32-36); Mean Corpuscular Hemoglobin 32.1 pg (26-34); Mean Corpuscular Volume 93.5 fl (80-100); Mean Platelet Volume 9.3 fl (7.4-10.4); Platelet Count Result 207 k/mm3 (150-375); Red Blood Count 5.11 M/mm3 (4.6-6.20); White Blood Count 7.2 K/mm3 (4.5-10.0)
[2020-11-10 10:35] LABS: Anion Gap 5 mmol/L (8-16); Blood Urea Nitrogen 19 mg/dL (9-20); Calcium 9.2 mg/dL (8.4-10.2); Carbon Dioxide 31 mmol/L (22-30); Chloride 101 mmol/L (98-107); Estimated CRCL calculation 40 ml/min; Estimated Glomerular Filt Rate 49; Glucose 111 mg/dL (75-110); Magnesium 1.9 mg/dL (1.6-2.3); Potassium 3.8 mmol/L (3.4-5.0); Sodium 137 mmol/L (137-145)
--- NOTE | 2020-11-10 15:21 | PM.DS ---
DS: Admitting Diagnosis Admitting Diagnosis Admitting Diagnosis: Chief Complaint: LUE weakness+ DS: Discharge Diagnosis Discharge Diagnosis (1) Ataxia of left upper extremity: Code(s): R27.0 - Ataxia, unspecified Status: Resolved Assessment and Plan: r/o TIA. ABCD2 score 6 - The patient has been placed in observation status. Neurochecks. Telemetry. Continue ASA therapy. Monitor blood pressure closely overnight. Neurology has been consulted by ER provider. Continue Neurology recommendations. 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 (3) HTN (hypertension): Qualifiers: Hypertension type: unspecified Qualified Code(s): I10 - Essential (primary) hypertension Code(s): I10 - Essential (primary) hypertension Status: Chronic Assessment and Plan: Monitor blood pressure. 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 DS: Summary Hospital Course Reason for hospitalization: Chief Complaint: LUE weakness+ Narrative: This is a 79 year old male with known ataxia and wheelchair bound presented to the hospital secondary to stroke like symptoms that started 2 hours prior to arrival to the hospital. The patient complained that he was sitting in a chair when suddenly this afternoon he couldn't lift his left arm. The patient is known to have dysarthria and weakness from a previous stroke. The patient denies any fevers, chills, blurry vision, double vision, worsening dysarthria, chest pain, cough, shortness of breath, abdominal pain, nausea, vomiting, diarrhea, rectal bleeding, numbness, tingling, syncope, or seizure like symptoms. 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 The patient was evaluated in the ER and routine labs were obtained. CT brain did not demonstrate any acute abnormality. Neurology, Dr. Marshall was consulted by ER provider. The patient's symptoms have completely resolved and he states that he is now back to his normal baseline. He has no other complaints. Hospital Course: Patient had CT scan of the head, CT of the head, and MRI of the brain essentially normal, patient now on his baseline clinically stable will discharge the patient today. Patient symptoms have resolved he is now to his baseline, will discharge patient home with home health PT/OT, he will follow up with his primary care provider as soon as possible, patient is instructed if any symptoms redevelop to call 911 and return to the ER. patient will continue his aspirin Status at Discharge Functional status at discharge: uses cane/walker Overall status at discharge: patient is back to baseline Time Spent with Patient Time attestation: Total time spent providing and/or coordinating discharge services: Patient was seen and examined at the time of the discharge Condition at discharge is stable Code status: Full code. Time spent preparing discharge summary, discharge medications, discussing discharge planning with block and case maker and patient is 35 minutes. Time spent: Greater than 30 minutes Exam Narrative: Exam Narrative: Patient is comfortable, NAD HEENT: eyes are clear and none icteric LUNGS:CTA HEART: RR S1S2 ABD: BS+, Soft and nontender Lower extremities: no edema SKIN: nonjaundiced Neuro: grossly intact. DS: Data Data Completed and Pending Labs on day of discharge: Labs from last 24 hours 11/10/20 11/10/20 09:59 09:59 WBC 7.2 RBC 5.11 Hgb 16.4 Hct 47.8 MCV 93.5 MCH 32.1 MCHC 34.3 RDW 14.0 Plt Count 207 MPV 9.3 Sodium 137 Potassium 3.8 Chloride 101 Carbon Dioxide 31 H Anion Gap 5 L BUN 19 Creatinine 1.40 H Estim Creat Clear Calc 40 Estimated GFR 49 L Glucose 111 H Calcium 9.2 Mag
== END 2020-11-10 18:45 | disposition home health service (06) ==
LOC: ANHED 22:10 → ANH2MED 11-09 04:41
PROVIDERS: Admitting Provider Family Medicine; Emergency Provider Emergency Medicine; PCP Internal Medicine; Visit Provider Family Medicine
DX: R27.0 Ataxia, unspecified (principal); R53.1 Weakness; R47.1 Dysarthria and anarthria; G93.89 Other specified disorders of brain; I69.322 Dysarthria following cerebral infarction; I69.354 Hemiplegia and hemiparesis following cerebral infarction affecting left non-dominant side; G51.0 Bell's palsy; I10 Essential (primary) hypertension; Z79.899 Other long term (current) drug therapy; Z79.82 Long term (current) use of aspirin
CPT/HCPCS: 36415; 51701; 70450; 70496; 70498; 70553; 71045; 80048; 80076; 81001; 82948; 83735; 84484; 85025; 85027; 85610; 85730; 93005; 96374; 96375; 97161; 99285; A9270; A9577; G0378; J2405; Q9967

== ENCOUNTER 2021-03-08 06:51 | Emergency (ER) | payer MEDICARE, SELFPAY ==
[2021-03-08] VITALS (10 sets, daily range): BP systolic 148–209; BP diastolic 78–119; PULSE 57–83; RESP 18–20; TEMP 36.3; O2SAT 95–98
--- NOTE | ~2021-03-08 | CT_ITS ---
EXAMINATION: CT abdomen pelvis w con DATE: 03/08/2021 08:37 INDICATION: Right abdominal pain. TECHNIQUE: Computed tomography (CT) of the abdomen and pelvis was performed with 100 mL Omnipaque 350 intravenous contrast. Automated exposure control and iterative reconstruction technique were employe d. The dose-length product was 916.74 mGy-cm. COMPARISON: None. FINDINGS: The visualized portions of the lung bases demonstrate mild atelectasis. No pleural effusion . The heart size is normal. No pericardial effusion. There liver, gallbladder, spleen, pancreas, adre nal glands, and left kidney are normal. There is a 2.5 cm cyst in right kidney. The prostate is mildl y enlarged. There are no dilated loops of bowel. The appendix is normal. There are no pathologically enlarged lymph nodes. There is no free intraperitoneal fluid. There is severe lower lumbar spondylosi s. IMPRESSION: 1. No specific etiology for the patient's symptoms. Reviewed, dictated and finalized at location A.
--- NOTE | 2021-03-08 07:30 | PC.NURSE ---
PT STATES UNABLE TO URINATE AT THIS TIME. ATTEMPT X1, UNSUCCESSFUL. REFUSES STRAIGHT CATH. WILL CONTINUE TO MONITOR
[2021-03-08 07:35] LABS: Basophils Absolute Auto 0.1 K/mm3 (0.0-0.1); Basophils Percent Auto 0.6 % (0.2-1.2); Eosinophils Absolute Auto 0.4 K/mm3 (0-0.3); Eosinophils Percent Auto 3.7 % (0-4.4); Hemoglobin 18.3 g/dL (14.0-18.0); Immature Granulocyte Absolute 0.03 K/mm3 (0.00-0.031); Immature Granulocyte Percent A 0.3 % (0-0.5); Lymphocytes Absolute Auto 3.13 K/mm3 (0.9-3.2); Lymphocytes Percent Auto 32.9 % (18.3-44.2); Mean Corpuscular HGB Conc 34.5 g/dl (32-36); Mean Corpuscular Hemoglobin 31.6 pg (26-34); Mean Corpuscular Volume 91.4 fl (80-100); Mean Platelet Volume 10.4 fl (7.4-10.4); Monocytes Percent Auto 10.7 % (2.6-8.5); Neutrophils Absolute Auto 4.9 K/mm3 (1.3-6.7); Neutrophils Percent Auto 51.8 % (45.5-73.1); Platelet Count Result 266 k/mm3 (150-375); Red Cell Distribution Width 12.9 % (11.5-14.5); White Blood Count 9.5 K/mm3 (4.5-10.0)
--- NOTE | 2021-03-08 07:41 | ED.GENADULT ---
HPI - General Adult General Chief complaint: Abdominal Pain Stated complaint: rt flank pain Time Seen by Provider: 03/08/21 07:03 Source: patient and family Limitations: other (aphasia) History of Present Illness HPI narrative: Patient is a 80 y/o male complaining of right sided abdominal pain starting about 1 week ago. He describes his pain as a bruise and rates it as 8-9/10 initially, but only 4/10 currently. He also has some right back pain. There is no known alleviating or exacerbating factor. He had some vomiting a few days ago, but no vomiting today. He has no diarrhea or dysuria. Related Data Home Medications Medication Instructions Recorded Confirmed aspirin [Aspirin Low Dose] 81 mg PO DAILY 09/16/19 11/09/20 lisinopril-hydrochlorothiazide 1 tablet PO BID 09/16/19 11/09/20 spironolactone 25 mg PO DAILY 09/16/19 11/09/20 Allergies Allergy/AdvReac Type Severity Reaction Status Date / Time No Known Allergies Allergy Verified 11/08/20 23:57 Review of Systems Review of Systems: All systems reviewed & are unremarkable except as noted in HPI and below Constitutional: Constitutional: Denies chills, Denies fever(s), Denies headache(s) and Denies weakness Eyes: Eyes: Denies blurry vision ENT: Denies headache(s) and Denies neck pain Cardiovascular: Cardiovascular: Denies chest pain and Denies dyspnea Respiratory: Respiratory: Denies cough and Denies dyspnea Gastrointestinal: Gastrointestinal: Reports abdominal pain, Denies diarrhea, Reports nausea and Reports vomiting Genitourinary: Genitourinary: Denies hematuria and Denies dysuria Musculoskeletal: Musculoskeletal: Denies back pain and Denies neck pain [facility] Past Medical History Medical History (Updated 03/08/21 @ 12:47 by Glo Razo MD) Anxiety Cerebellar ataxia CVA (cerebral vascular accident) HTN (hypertension) Hx of Diggs's palsy TIA (transient ischemic attack) Surgical History Surgical History No pertinent past surgical history Family History Family History Father CKD (chronic kidney disease) Sibling Heart disease Breast cancer Mother Lymphoma Social History Social History Smoking status: Never smoker Alcohol intake: never Substance use: never Gender identity (if verbalized by the patient): Male Spiritual care concerns: No Agree to blood products: Yes Exam Const: General: no acute distress and well developed HENMT: Head: normocephalic Ears: external ears normal General nose exam: Normal external nose present Eyes: General: appearance normal, both eyes and all related structures Conjunctivae: conjunctivae normal Neck: Neck: normal visual inspection and full ROM Chest: Chest palpation & inspection: normal inspection of the chest and no tenderness Resp: Effort & Inspection: normal respiratory effort Auscultation: clear to auscultation bilaterally Cardio: Rate: regular rate Rhythm: regular rhythm GI: GI Palp: No abdominal tenderness and Yes Soft to palpation Skin: General skin exam: normal color and turgor normal Neuro: Cognition (Neuro): normal cognition Speech: Expressive aphasia present Extrem: General: normal to inspection, full ROM and no pedal edema Psych: Appearance: grossly normal Mental Status: mental status grossly normal Affect: normal affect Course Vital Signs Vital signs: Vital Signs Temperature 36.3 C L 03/08/21 06:56 Pulse Rate 83 03/08/21 06:56 Respiratory Rate 18 03/08/21 06:56 Blood Pressure 209/119 H 03/08/21 06:56 Pulse Oximetry 96 03/08/21 06:56 Temperature 36.3 C L 03/08/21 06:56 Pulse Rate 63 03/08/21 13:03 Respiratory Rate 20 03/08/21 13:03 Blood Pressure 148/78 H 03/08/21 13:03 Pulse Oximetry 97 03/08/21 13:03 Medical Decision Making Vital Signs Vital Signs: Vital Signs
[2021-03-08] MEDS: lisinopriL 20 MG TABLET PO (08:11)
[2021-03-08] MEDS: hydroCHLOROthiazide 12.5 MG CAPSULE PO (08:11)
[2021-03-08] MEDS: SODIUM CHLORIDE 0.9% IV 1,000 ML 999 ML IV CONT (08:11)
[2021-03-08 08:13] LABS: Alanine Aminotransferase 66 U/L (4-50); Albumin Level 4.8 g/dL (3.5-5.1); Alkaline Phosphatase 85 U/L (38-126); Anion Gap 9 mmol/L (8-16); Aspartate Amino Transferase 51 U/L (17-59); Bilirubin,Total 0.9 mg/dL (0.2-1.3); Blood Urea Nitrogen 17 mg/dL (9-20); Calcium 9.5 mg/dL (8.4-10.2); Carbon Dioxide 29 mmol/L (22-30); Chloride 99 mmol/L (98-107); Estimated CRCL calculation 42 ml/min; Estimated Glomerular Filt Rate 53; Glucose 124 mg/dL (75-110); Lipase 77 U/L (23-300); Potassium 3.2 mmol/L (3.4-5.0); Sodium 137 mmol/L (137-145)
[2021-03-08] MEDS: KETOROLAC 15 MG/ML VIAL (*BKC) IV PUSH (08:54)
[2021-03-08 08:57] LABS: Add Urine Microscopic? NO; Appearance Urine Clear (Clear); Bilirubin Urine Negative (Negative); Blood Urine Negative (Negative); Color Urine Yellow (Yellow); Glucose Urine UA Negative (Negative); Ketones Urine Negative (Negative); Leukocyte Esterase Ur Negative LEU/UL (Negative); Nitrate Urine Negative (Negative); Protein Urine Negative (Negative); Specific Grav Ur 1.023 (1.001-1.035); Urobilinogen Urine Negative mg/dL (<2.0)
[2021-03-08] MEDS: POTASSIUM CHLORIDE 20 MEQ TABLET 40 MEQ PO (11:10)
== END 2021-03-08 13:07 | disposition home or self-care (01) ==
PROVIDERS: Emergency Medicine; Emergency Provider Emergency Medicine; PCP Internal Medicine
DX: R10.11 Right upper quadrant pain (principal); I10 Essential (primary) hypertension; Z86.73 Personal history of transient ischemic attack (TIA), and cerebral infarction without residual deficits; Z79.82 Long term (current) use of aspirin; G11.9 Hereditary ataxia, unspecified
CPT/HCPCS: 36415; 74177; 80053; 81003; 83690; 85025; 96361; 96374; 99284; A9270; J1885; J7030; Q9967

== ENCOUNTER 2022-09-28 01:41 | Emergency (ER) | payer MEDICARE, SELFPAY ==
[2022-09-28] VITALS (34 sets, daily range): BP systolic 125–154; BP diastolic 70–94; PULSE 75–97; RESP 15–23; TEMP 36.6–37.2; O2SAT 92–99
--- NOTE | ~2022-09-28 | CT_ITS ---
EXAMINATION: CT abdomen pelvis w con DATE: 09/28/2022 02:57 INDICATION: Right abdominal pain. Vomiting. TECHNIQUE: Computed tomography (CT) of the abdomen and pelvis was performed with 100 mL Omnipaque 350 intravenous contrast. Automated exposure control and iterative reconstruction technique were employe d. The dose-length product was 1340.60 mGy-cm. COMPARISON: CT abdomen and pelvis 03/08/2021 FINDINGS: The visualized portions of the lung bases demonstrate mild atelectasis. No pleural effusion . The heart size is normal. There are calcifications of the aortic valve and coronary arteries. No pe ricardial effusion. The liver, gallbladder, spleen, pancreas, and adrenal glands are normal. There is cortical thinning of the kidneys. There are cysts in the kidneys measuring up to 3.0 cm on the right . The prostate is mildly enlarged. There is diverticulosis of the colon without evidence of diverticu litis. The appendix is normal. There are no dilated loops of bowel. There are no pathologically enlar ged lymph nodes. There is no free intraperitoneal fluid. There is severe lower lumbar spondylosis. IMPRESSION: 1. No etiology for the patient's symptoms. Reviewed, dictated and finalized at location A. E COORDINATOR
[2022-09-28 01:58] LABS: Hematocrit 56.4 % (42.0-52.0); Hemoglobin 19.1 g/dL (14.0-18.0); Mean Corpuscular HGB Conc 33.9 g/dl (32-36); Mean Corpuscular Volume 91.4 fl (80-100); Mean Platelet Volume 9.6 fl (7.4-10.4); Platelet Count Result 169 k/mm3 (150-375); Red Blood Count 6.17 M/mm3 (4.6-6.20); Red Cell Distribution Width 13.1 % (11.5-14.5); White Blood Count 6.8 K/mm3 (4.5-10.0)
--- NOTE | 2022-09-28 02:16 | ED.NAVMDI ---
HPI - Nausea/Vomiting/Diarrhea General Chief complaint: Nausea/Vomiting/Diarrhea Stated complaint: vomiting blood Time Seen by Provider: 09/28/22 01:57 History of Present Illness HPI Narrative: Patient is an 82-year-old male with a history of hypertension, Related Data Home Medications Medication Instructions Recorded Confirmed aspirin 81 mg tablet,delayed 81 mg PO DAILY 09/16/19 11/09/20 release (Jerome Low Dose Aspirin) lisinopril 20 1 tablet PO BID 09/16/19 11/09/20 mg-hydrochlorothiazide 12.5 mg tablet spironolactone 25 mg tablet 25 mg PO DAILY 09/16/19 11/09/20 Allergies Allergy/AdvReac Type Severity Reaction Status Date / Time No Known Allergies Allergy Verified 11/08/20 23:57 [facility] Past Medical History Medical History (Updated 03/09/21 @ 00:00 by Huber Borges) Anxiety Cerebellar ataxia CVA (cerebral vascular accident) HTN (hypertension) Hx of Diggs's palsy TIA (transient ischemic attack) Surgical History Surgical History No pertinent past surgical history Family History Family History Father CKD (chronic kidney disease) Sibling Heart disease Breast cancer Mother Lymphoma Social History Social History Smoking status: Never smoker Alcohol intake: never Substance use: never Gender identity (if verbalized by the patient): Male Spiritual care concerns: No Agree to blood products: Yes Course Vital Signs Vital signs: Vital Signs Temperature 98.9 F 09/28/22 01:38 Pulse Rate 92 09/28/22 01:38 Respiratory Rate 16 09/28/22 01:38 Blood Pressure 154/91 H 09/28/22 01:38 Pulse Oximetry 92 09/28/22 01:38 Oxygen Delivery Room Air 09/28/22 01:38 Temperature 98.9 F 09/28/22 01:38 Pulse Rate 89 09/28/22 02:02 Respiratory Rate 21 H 09/28/22 02:02 Blood Pressure 140/94 H 09/28/22 02:02 Pulse Oximetry 93 09/28/22 02:02 Oxygen Delivery Room Air 09/28/22 01:38 MDM - Nausea/Vomiting/Diarrhea Lab Data 09/28/22 01:50 09/28/22 01:50 Labs: Lab Results 09/28/22 09/28/22 Range/Units 01:50 01:50 WBC 6.8 (4.5-10.0) K/mm3 RBC 6.17 (4.6-6.20) M/mm3 Hgb 19.1 H (14.0-18.0) g/dL Hct 56.4 H (42.0-52.0) % MCV 91.4 (80-100) fl MCH 31.0 (26-34) pg MCHC 33.9 (32-36) g/dl RDW 13.1 (11.5-14.5) % Plt Count 169 (150-375) k/mm3 MPV 9.6 (7.4-10.4) fl Immature Gran % (Auto) Not Reportable Neut % (Auto) Not Reportable Lymph % (Auto) Not Reportable Bond % (Auto) Not Reportable Eos % (Auto) Not Reportable Baso % (Auto) Not Reportable Lymph # (Auto) Not Reportable Bond # (Auto) Not Reportable Eos # (Auto) Not Reportable Baso # (Auto) Not Reportable Abs Immat Gran (auto) Not Reportable Absolute Neuts (auto) Not Reportable Absolute Nucleated RBC Not Reportable Total Counted 100 Neutrophils % (Manual) 62 (46-73) % Band Neutrophils % 6 (0-6) % Lymphocytes % (Manual) 24.0 (18-44) % Monocytes % (Manual) 8 (3-9) % Nucleated RBC % Not Reportable Abs Neuts (Manual) 4.62 (1.3-6.7) K/mm3 Abs Lymphs (Manual) 1.63 (1.1-4.5) K/mm3 Abs Monocytes (Manual) 0.54 (0.1-0.90) K/mm3 Platelet Estimate Adequate (Adequate) Schistocytes None seen (NORMAL) Sodium 135 L (137-145) mmol/L Potassium 4.1 (3.4-5.0) mmol/L Chloride 99 (98-107) mmol/L Carbon Dioxide 25 (22-30) mmol/L Anion Gap 11 (8-16) mmol/L BUN 27 H D (9-20) mg/dL Creatinine 1.70 H (0.7-1.3) mg/dL Estim Creat Clear Calc Not Reportable Estimated GFR 39 L (59 - ) Glucose 142 H (65-110) mg/dL Calcium 9.2 (8.4-10.2) mg/dL Total Bilirubin 0.9 (0.2-1.3) mg/dL AST 76 H (17-59) U/L ALT 92 H (6-50) U/L Alkaline Phosphatase 80 (38-126) U/L Tota
[2022-09-28 02:18] LABS: Band Neutrophils Percent 6 % (0-6); Lymphocytes Absolute Manual 1.63 K/mm3 (1.1-4.5); Monocytes Absolute Manual 0.54 K/mm3 (0.1-0.90); Monocytes Percent Manual 8 % (3-9); Neutrophils Absolute Manual 4.62 K/mm3 (1.3-6.7); Neutrophils Percent Manual 62 % (46-73); Platelet Estimate Adequate (Adequate); Total Cells Counted 100
[2022-09-28 02:19] LABS: Schistocytes None Seen (NORMAL)
[2022-09-28 02:23] LABS: Alanine Aminotransferase 92 U/L (6-50); Albumin Level 4.8 g/dL (3.5-5.1); Alkaline Phosphatase 80 U/L (38-126); Anion Gap 11 mmol/L (8-16); Aspartate Amino Transferase 76 U/L (17-59); Bilirubin,Total 0.9 mg/dL (0.2-1.3); Blood Urea Nitrogen 27 mg/dL (9-20); Calcium 9.2 mg/dL (8.4-10.2); Carbon Dioxide 25 mmol/L (22-30); Chloride 99 mmol/L (98-107); Estimated Glomerular Filt Rate 39; Glucose 142 mg/dL (65-110); Lipase 206 U/L (23-300); Potassium 4.1 mmol/L (3.4-5.0); Sodium 135 mmol/L (137-145)
[2022-09-28] MEDS: ONDANSETRON INJ 4 MG/2 ML VIAL IV PUSH (02:37)
[2022-09-28] MEDS: SODIUM CHLORIDE 0.9% IV 1,000 ML 999 ML IV CONT ×2 (02:37→04:07)
[2022-09-28 03:28] LABS: Appearance Urine Clear (Clear); Bacteria Urine Trace /hpf; Bilirubin Urine Negative (Negative); Blood Urine 1+ (Negative); Color Urine Yellow (Yellow); Glucose Urine UA Negative (Negative); Ketones Urine Trace mg/dL (Negative); Leukocyte Esterase Ur Negative LEU/UL (Negative); Mucus Urine Rare /lpf; Nitrate Urine Negative (Negative); Protein Urine 1+ mg/dL (Negative); RBC Urine 0-2 /hpf (0-2); Squamous Epithelial Cell Urine Rare /hpf (Few); Urobilinogen Urine 0.2 mg/dL (<2.0); WBC Urine 0-3 /hpf; pH Urine 6.5 (5.0-9.0)
[2022-09-28 03:30] LABS: Add Urine Microscopic? YES
--- NOTE | 2022-09-28 09:01 | PC.NURSE ---
Still awaiting for patient's for ride home.
== END 2022-09-28 09:32 | disposition home or self-care (01) ==
PROVIDERS: Emergency Provider Emergency Medicine; PCP Internal Medicine
DX: R11.2 Nausea with vomiting, unspecified (principal); E86.0 Dehydration; I10 Essential (primary) hypertension; Z79.82 Long term (current) use of aspirin; Z86.73 Personal history of transient ischemic attack (TIA), and cerebral infarction without residual deficits
CPT/HCPCS: 36415; 74177; 80053; 81001; 83690; 85025; 96361; 96374; 99284; J2405; J7030; Q9967

== ENCOUNTER 2022-10-04 21:17 | Observation (INO) | payer MEDICARE, SELFPAY ==
--- NOTE | ~2022-10-04 | XR_ITS ---
EXAMINATION: XR abdomen/kub 1V INDICATION: Constipation TECHNIQUE: Supine views of the abdomen were obtained on 2 radiographs. COMPARISON: None FINDINGS: The bowel gas pattern is normal. There are no dilated loops of bowel. There is a normal vol ume of colonic stool. There is left basilar atelectasis. IMPRESSION: 1. Unremarkable abdominal radiographs. Reviewed, dictated and finalized at location L. L MIXER
--- NOTE | ~2022-10-04 | XR_ITS ---
EXAMINATION: XR chest 2V DATE: 10/04/2022 21:59 INDICATION: Shortness of breath. Right-sided weakness. Fall. TECHNIQUE: frontal and lateral views of the chest were obtained. COMPARISON: Chest radiograph dated 11/08/2020 FINDINGS: The lungs remain small. There is blunting of the left costophrenic resulting from a small left perica rdial fat pad better appreciated on CT dated 09/28/2022. Mild streaky left basilar atelectasis. No pul monary edema, pleural effusion or pneumothorax. Cardiomediastinal silhouette is within normal limits for AP technique. IMPRESSION: 1. Small lung volumes with mild streaky left basilar atelectasis. Reviewed, dictated and finalized at location A. CUTTER
[2022-10-04 21:18] VITALS: BP 158/90; PULSE 90; RESP 24; TEMP 36.9; O2SAT 95
[2022-10-04 21:54] LABS: Basophils Percent Auto 0.5 % (0.2-1.2); Eosinophils Absolute Auto 0.2 K/mm3 (0-0.3); Eosinophils Percent Auto 2.7 % (0-4.4); Hematocrit 50.9 % (42.0-52.0); Hemoglobin 17.8 g/dL (14.0-18.0); Immature Granulocyte Absolute 0.04 K/mm3 (0.00-0.031); Immature Granulocyte Percent A 0.5 % (0-0.5); Lymphocytes Absolute Auto 1.47 K/mm3 (0.9-3.2); Lymphocytes Percent Auto 19.5 % (18.3-44.2); Mean Corpuscular Hemoglobin 31.1 pg (26-34); Mean Corpuscular Volume 88.8 fl (80-100); Mean Platelet Volume 9.7 fl (7.4-10.4); Monocytes Absolute Auto 0.9 K/mm3 (0.1-0.6); Monocytes Percent Auto 11.8 % (2.6-8.5); Neutrophils Absolute Auto 4.9 K/mm3 (1.3-6.7); Platelet Count Result 220 k/mm3 (150-375); Red Blood Count 5.73 M/mm3 (4.6-6.20); Red Cell Distribution Width 12.6 % (11.5-14.5); White Blood Count 7.5 K/mm3 (4.5-10.0)
[2022-10-04 22:02] LABS: Alanine Aminotransferase 66 U/L (6-50); Albumin Level 4.2 g/dL (3.5-5.1); Alkaline Phosphatase 80 U/L (38-126); Anion Gap 11 mmol/L (8-16); Aspartate Amino Transferase 56 U/L (17-59); Bilirubin,Total 1.1 mg/dL (0.2-1.3); Blood Urea Nitrogen 19 mg/dL (9-20); Calcium 8.8 mg/dL (8.4-10.2); Carbon Dioxide 25 mmol/L (22-30); Chloride 99 mmol/L (98-107); Estimated CRCL calculation 41 ml/min; Estimated Glomerular Filt Rate 45; Glucose 132 mg/dL (65-110); Potassium 3.7 mmol/L (3.4-5.0); Sodium 135 mmol/L (137-145)
--- NOTE | 2022-10-04 22:26 | ED.GENADULT ---
HPI - General Adult General Chief complaint: Weakness Stated complaint: GEN WKNS, FALLS Time Seen by Provider: 10/04/22 21:38 History of Present Illness HPI narrative: 82-year-old male presenting to the emergency department for evaluation of increased generalized weakness. Patient states he does live at home with his and has had multiple falls over the last few months due to generalized weakness. Patient does have a prior history of a CVA resulting in right-sided weakness. While patient has had increased generalized weakness he states he has not had any recent falls or injuries. Patient states that he was evaluated recently Emergency Department but was discharged home. Patient does have physical therapy who comes to see him twice a week and he feels that he is getting stronger but at this point he feels he is too weak to take care of himself at home and is interested in possible fdc placement. Patient does have a history of hypertension, cerebellar ataxia, prior CVA and generalized weakness Related Data Home Medications Medication Instructions Recorded Confirmed aspirin 81 mg tablet,delayed 81 mg PO DAILY 09/16/19 10/05/22 release (Jerome Low Dose Aspirin) spironolactone 25 mg tablet 25 mg PO DAILY 09/16/19 10/05/22 Allergies Allergy/AdvReac Type Severity Reaction Status Date / Time No Known Allergies Allergy Verified 10/04/22 23:51 Review of Systems Review of Systems: CONSTITUTIONAL: See HPI EYES: Denies visual changes, redness, or discharge. ENT: Denies rhinorrhea, congestion, sore throat, or otalgia. CARDIOVASCULAR: Denies chest pain, palpitations, or edema. RESPIRATORY: Denies cough or dyspnea. GASTROINTESTINAL: Denies abdominal pain, nausea, vomiting, or diarrhea. GENITOURINARY: Denies dysuria or hematuria. SKIN: Denies rash or itching. MUSCULOSKELETAL: Denies back pain, joint pain, or myalgia. NEUROLOGIC: See HPI [facility] Past Medical History Medical History (Updated 10/05/22 @ 04:04 by Joey Mcdonald MD) Anxiety Cerebellar ataxia CVA (cerebral vascular accident) HTN (hypertension) Hx of Diggs's palsy TIA (transient ischemic attack) Surgical History Surgical History No pertinent past surgical history Family History Family History Father CKD (chronic kidney disease) Sibling Heart disease Breast cancer Mother Lymphoma Social History Social History Smoking status: Never smoker Alcohol intake: never Substance use: never Lack of Transportation: YES Lack of Food: Sometimes True Current Housing: I Have Housing Concerned About Future Housing: No Difficulty Paying Gas/Electric Bills: No Difficulty Paying for Meds: No Currently Unemployed: No Education: Grade School Difficulty w/ Childcare or Family Care: No Gender identity (if verbalized by the patient): Male Spiritual care concerns: No Agree to blood products: Yes Exam Narrative: APPEARANCE: Well appearing, no pain, no distress, well-nourished. HEAD: normocephalic, atraumatic. EYES: PERRLA/EOMI, conjunctivae clear. NOSE: Normal no drainage EARS:TMS clear with good light reflex. THROAT: Pharynx clear, no exudate. NECK: Supple. No adenopathy, no masses. RESPIRATORY: Airway patent, respirations nonlabored. Clear to auscultation bilaterally, no rales, rhonchi, wheezing. CARDIOVASCULAR: Regular rate and rhythm without murmurs rubs or gallops. ABDOMINAL: Soft, nontender, nondistended, normal bowel sounds MUSCULOSKELETAL: Moves all extremities. Strength/ROM intact, No edema, No calf tenderness. NEURO: Alert. Cranial nerves II through XII intact. Grossly intact SKIN: Warm, dry. Normal Color Course Course Emergency Course: Patient states that this evening he feels too weak to go home and to take care of himself. Patient states this did not happen
[2022-10-04 22:49] LABS: Appearance Urine Clear (Clear); Bilirubin Urine Negative (Negative); Blood Urine Negative (Negative); Color Urine Yellow (Yellow); Glucose Urine UA Negative (Negative); Ketones Urine Negative (Negative); Leukocyte Esterase Ur Negative LEU/UL (Negative); Nitrate Urine Negative (Negative); Protein Urine 1+ mg/dL (Negative); Urobilinogen Urine 0.2 mg/dL (<2.0)
[2022-10-04 22:55] LABS: Influenza A QL RT-PCR Negative (Negative); Influenza B QL RT-PCR Negative (Negative); RSV RNA, RT-PCR Negative (Negative); SARS-CoV-2 RNA PCR Positive
[2022-10-04 22:58] LABS: RBC Urine 0-2 /hpf (0-2); Squamous Epithelial Cell Urine Rare /hpf (Few); WBC Urine 0-3 /hpf
[2022-10-04 23:00] LABS: Add Urine Microscopic? YES
[2022-10-04 23:46] VITALS: BP 169/104; PULSE 96; RESP 22; O2SAT 94
--- NOTE | 2022-10-04 23:47 | PC.NURSE ---
Pt given water per pt request. Failed PO challenge. Per VORNazanin Quezada, give 4mg IV Zofran.
--- NOTE | 2022-10-04 23:50 | PM.IMHP ---
H&P: HPI History of Present Illness Date/Time: 10/04/22 23:50 Chief Complaint: Generalized weakness Narrative: This is an 82-year-old male with past medical history significant for stroke, right-sided hemiparesis, patient presents to the emergency room due to generalized weakness, nausea, vomiting, muscle weakness, poor appetite, body aches and pains, chills, rigors. Most of the history has been obtained upon reviewing medical records. Preliminary workup was significant for patient tested positive for COVID-19, a chest x-ray was reported as: FINDINGS: The lungs remain small. There is blunting of the left costophrenic resulting from a small left pericardial fat pad better appreciated on CT dated 09/28/2022. Mild streaky left basilar atelectasis. No pulmonary edema, pleural effusion or pneumothorax. Cardiomediastinal silhouette is within normal limits for AP technique. IMPRESSION: 1. Small lung volumes with mild streaky left basilar atelectasis. Review of Systems Review of Systems: Generalized weakness, poor appetite, body aches and pains, muscle weakness. ROS unobtainable: Yes unobtainable due to medical condition (Nausea vomiting, generalized weakness) PMF Past Medical History Medical History (Updated 10/05/22 @ 04:04 by Joey Mcdonald MD) Anxiety Cerebellar ataxia CVA (cerebral vascular accident) HTN (hypertension) Hx of Diggs's palsy TIA (transient ischemic attack) Surgical History Surgical History No pertinent past surgical history Family History Family History Father CKD (chronic kidney disease) Sibling Heart disease Breast cancer Mother Lymphoma Social History Social History Smoking status: Never smoker Alcohol intake: never Substance use: never Lack of Transportation: YES Lack of Food: Sometimes True Current Housing: I Have Housing Concerned About Future Housing: No Difficulty Paying Gas/Electric Bills: No Difficulty Paying for Meds: No Currently Unemployed: No Education: Grade School Difficulty w/ Childcare or Family Care: No Gender identity (if verbalized by the patient): Male Spiritual care concerns: No Agree to blood products: Yes Meds Home Medications and Allergies Home Medications Medication Instructions Recorded Confirmed Type aspirin 81 mg tablet,delayed 81 mg PO DAILY 09/16/19 10/05/22 History release (Jerome Low Dose Aspirin) spironolactone 25 mg tablet 25 mg PO DAILY 09/16/19 10/05/22 History Allergies Allergy/AdvReac Type Severity Reaction Status Date / Time No Known Allergies Allergy Verified 10/04/22 23:51 Vital Signs Vital Signs - 24 hr 10/04/22 21:18 10/04/22 23:46 Temperature 98.4 F Pulse Rate 90 96 Respiratory Rate 24 H 22 H Blood Pressure 158/90 H 169/104 H Pulse Oximetry 95 94 Oxygen Delivery Room Air Exam Narrative: Patient is laying in bed Const: General: well developed, alert, ill appearing, lethargic, tired appearing, uncomfortable and average body habitus Nutritional Appearance: average body habitus Orientation/consciousness: oriented to person and oriented to place HENMT: Head: normal to inspection, normocephalic and atraumatic Ears: hearing grossly normal bilaterally Face/Nose/Sinus: normal facial exam Face and sinus: normal facial exam Eyes: General: appearance normal, both eyes and all related structures Pupils: Equal, round and reactive pupils present EOM: EOMs intact bilaterally Neck: Neck: full ROM, no lymphadenopathy and no JVD Thyroid: thyroid normal Lymphatic: no lymphadenopathy noted Resp: Effort & Inspection: normal respiratory effort and able to speak in complete sentences Auscultation: clear to auscultation bilaterally Cardio: Jugular venous distension: no JVD Rate: regular rate Rhythm: regular rhythm Heart sounds: S1 n
[2022-10-04] MEDS: ONDANSETRON INJ 4 MG/2 ML VIAL IV PUSH (23:51)
[2022-10-05] VITALS (12 sets, daily range): BP systolic 111–140; BP diastolic 73–87; PULSE 68–87; RESP 14–22; TEMP 36.1–36.7; O2SAT 92–99; BMI 31.8
--- NOTE | 2022-10-05 02:58 | ADMGEN ---
This patient, Arnel Marquez, was admitted to 3 Med Surg Room 320-01. Patient/family oriented to hospital policies and general routines including ID bracelet, bed and alarms, visiting hours, pain management, procedures, bathroom and other care routines, personal items, smoking policy, room service/diet, and visiting hours. Information on how to activate the Rapid Response Team has been discussed. Patient/Family are encouraged to report perceived risks to care and to ask questions if they do not understand what they are told or what they should do.
[2022-10-05] MEDS: cefTRIAXone 2 GM in SODIUM CHLORIDE 0.9% IV 100 ML 200 ML IVPB (05:20)
--- NOTE | 2022-10-05 13:35 | PM.IMPN ---
Progress Note: A&P Assessment and Plan (1) Right hemiparesis: Code(s): G81.91 - Hemiplegia, unspecified affecting right dominant side Status: Acute (2) Generalized weakness: Code(s): R53.1 - Weakness Status: Acute (3) COVID: Code(s): U07.1 - COVID-19 Status: Acute (4) Chronic kidney disease: Code(s): N18.9 - Chronic kidney disease, unspecified Status: Acute Plan ?82-year-old male with past medical history significant for stroke, right-sided hemiparesis, patient presents to the emergency room due to generalized weakness, nausea, vomiting,? muscle weakness, poor appetite, body aches and pains, chills, rigors.?Tested positive for COVID 19. 1)Acute COVID 19: Likely doesnt need O2, more for comfort No need for steroids C/w Short course of Azithromycin, Ceftriaxone Supportive treatment Nasal saline 2)H/O Stroke: c/w ASA PT/OT 3)DVT ppx: Hep SQ 4)H/o CKD: Stable kidney function Avoid nephrotoxins Recheck BMP in AM 5)Code:Full 6)Dispo:pending improvement Time Spent With Patient Time with patient: 25 - 35 minutes Subjective Date/time seen: 10/05/22 13:35 Interval history: no acute events overnight Review of Systems Review of Systems: All systems reviewed & are unremarkable except as noted in HPI and below Constitutional: Constitutional: Reports body ache(s), Reports fatigue and Reports weakness Eyes: Eyes: Reports no additional eye complaints ENT: Reports system reviewed and no additional complaints, except as documented and Reports nasal congestion Cardiovascular: Cardiovascular: Reports no additional cardiovascular complaints Respiratory: Respiratory: Reports chest congestion and Reports cough Gastrointestinal: Gastrointestinal: Reports no additional gastrointestinal complaints Neurologic: Reports Abnormal speech present Exam Const: General: no acute distress HENMT: Mouth: Yes moist mucous membranes Eyes: Sclera: sclerae normal Neck: Neck: supple Resp: Other: decreased breath sounds B/L, no added sounds heard Cardio: Rate: regular rate Rhythm: regular rhythm GI: GI Palp: Yes Soft to palpation Auscultation: normal bowel sounds Skin: General skin exam: normal color Neuro: Speech: normal speech (dysarthric speech) Motor exam (neuro): 5/5 motor strength present throughout (prior stroke with residual weakness) Extrem: General: normal to inspection Psych: Mental Status: mental status grossly normal Objective Data Vital Signs Vital Signs: Vital Signs - 24 hr 10/04/22 21:18 10/04/22 23:46 10/05/22 00:03 Temperature 98.4 F Pulse Rate 90 96 Respiratory Rate 24 H 22 H Blood Pressure 158/90 H 169/104 H 140/77 Pulse Oximetry 95 94 Oxygen Delivery Room Air Oxygen Flow Rate 10/05/22 00:21 10/05/22 00:28 10/05/22 00:32 Temperature Pulse Rate 85 Respiratory Rate 22 H Blood Pressure 130/87 Pulse Oximetry 92 95 96 Oxygen Delivery Nasal Cannula Oxygen Flow Rate 2 10/05/22 01:50 10/05/22 03:11 10/05/22 02:41 Temperature 97.6 F Pulse Rate 87 85 Respiratory Rate 20 14 Blood Pressure 111/81 135/83 Pulse Oximetry 98 96 96 Oxygen Delivery Nasal Cannula Oxygen Flow Rate 2 10/05/22 06:00 10/05/22 08:00 10/05/22 08:00 Temperature 97.6 F 97 F L Pulse Rate 83 73 73 Respiratory Rate 14 22 H 22 H Blood Pressure 130/77 126/73 Pulse Oximetry 96 99 99 Oxygen Delivery Nasal Cannula Oxygen Flow Rate 1 10/05/22 11:01 10/05/22 11:46 Temperature 97.6 F Pulse Rate 80 Respiratory Rate 20 Blood Pressure 123/78 Pulse Oximetry 98 Oxygen Delivery Nasal Cannula Oxygen Flow Rate 1 Intake/Output Intake/Output: Intake & Output 10/02/22 10/03/22 10/04/22 10/05/22 23:59 23:59 23:59 23:59 Intake Total 600 Output Total 150 Balance 450 Meds/Results Medications: Active Medications Generic Name Dose Route Start Last Admin Trade Name Freq PRN Lizzy
[2022-10-05] MEDS: HEPARIN SODIUM 5,000 UNITS/ML VIAL 5000 UNITS SUB-Q ×2 (17:22→21:03)
[2022-10-06] MEDS: cefTRIAXone 2 GM in SODIUM CHLORIDE 0.9% IV 100 ML IVPB (03:10)
[2022-10-06 05:23] VITALS: BP 140/81; PULSE 69; RESP 20; TEMP 36.8; O2SAT 94
[2022-10-06] MEDS: HEPARIN SODIUM 5,000 UNITS/ML VIAL 5000 UNITS SUB-Q ×3 (05:58→21:53)
[2022-10-06 06:00] LABS: Basophils Percent Auto 0.7 % (0.2-1.2); Eosinophils Absolute Auto 0.4 K/mm3 (0-0.3); Eosinophils Percent Auto 6.2 % (0-4.4); Hematocrit 45.6 % (42.0-52.0); Hemoglobin 15.4 g/dL (14.0-18.0); Immature Granulocyte Absolute 0.02 K/mm3 (0.00-0.031); Immature Granulocyte Percent A 0.3 % (0-0.5); Lymphocytes Absolute Auto 2.01 K/mm3 (0.9-3.2); Lymphocytes Percent Auto 34.5 % (18.3-44.2); Mean Corpuscular HGB Conc 33.8 g/dl (32-36); Mean Corpuscular Hemoglobin 30.8 pg (26-34); Mean Corpuscular Volume 91.2 fl (80-100); Mean Platelet Volume 9.6 fl (7.4-10.4); Monocytes Absolute Auto 0.8 K/mm3 (0.1-0.6); Monocytes Percent Auto 14.3 % (2.6-8.5); Neutrophils Absolute Auto 2.6 K/mm3 (1.3-6.7); Platelet Count Result 201 k/mm3 (150-375); Red Cell Distribution Width 12.6 % (11.5-14.5); White Blood Count 5.8 K/mm3 (4.5-10.0)
[2022-10-06] MEDS: ASPIRIN 81 MG ENTERIC TABLET PO (08:21)
[2022-10-06] MEDS: SPIRONOLACTONE 25 MG TABLET PO (08:21)
[2022-10-06 11:10] VITALS: O2SAT 95
[2022-10-06 11:42] LABS: Anion Gap 6 mmol/L (8-16); Blood Urea Nitrogen 18 mg/dL (9-20); Calcium 8.6 mg/dL (8.4-10.2); Carbon Dioxide 30 mmol/L (22-30); Chloride 97 mmol/L (98-107); Estimated CRCL calculation 41 ml/min; Estimated Glomerular Filt Rate 45; Glucose 187 mg/dL (65-110); Sodium 133 mmol/L (137-145)
[2022-10-06] MEDS: polyethylene glycoL 3350 17 GM POWD.PACK PO (14:18)
--- NOTE | 2022-10-06 14:54 | PM.IMPN ---
Progress Note: A&P Assessment and Plan (1) Right hemiparesis: Code(s): G81.91 - Hemiplegia, unspecified affecting right dominant side Status: Acute (2) Generalized weakness: Code(s): R53.1 - Weakness Status: Acute (3) COVID: Code(s): U07.1 - COVID-19 Status: Acute (4) Chronic kidney disease: Code(s): N18.9 - Chronic kidney disease, unspecified Status: Acute Plan 82-year-old male with past medical history significant for stroke, right-sided hemiparesis, patient presents to the emergency room due to generalized weakness, nausea, vomiting,? muscle weakness, poor appetite, body aches and pains, chills, rigors.?Tested positive for COVID 19. # Acute COVID 19: Likely doesnt need O2, more for comfort No need for steroids C/w Short course of Azithromycin, Ceftriaxone Supportive treatment Nasal saline spray Chest x-ray with small lung volumes with mild streaky left basilar atelectasis # H/O Stroke: c/w ASA PT/OT # DVT ppx: Hep SQ # constipation: Will add MiraLax and Dulcolax # CKD stage 3: Stable kidney function Avoid nephrotoxins Recheck BMP in AM # Code:Full # Dispo: Accepted at [facility] Subjective Date/time seen: 10/06/22 14:54 Interval history: no acute events overnight. Patient is he is off oxygen continues to generalized fall so few. Lives at home with his has prior to admission. Review of Systems Review of Systems: All systems reviewed & are unremarkable except as noted in HPI and below Exam Narrative: APPEARANCE: Well appearing, no pain, no distress, well-nourished. HEAD: normocephalic, atraumatic. EYES: PERRLA/EOMI, conjunctivae clear. THROAT: Pharynx clear, no exudate. NECK: Supple. No adenopathy, no masses. RESPIRATORY: Airway patent, respirations nonlabored. Clear to auscultation bilaterally, no rales, rhonchi, wheezing. CARDIOVASCULAR: Regular rate and rhythm without murmurs rubs or gallops. ABDOMINAL: Soft, nontender, nondistended, normal bowel sounds MUSCULOSKELETAL: Moves all extremities. Strength/ROM intact, No edema, No calf tenderness. NEURO: Alert. Cranial nerves II through XII intact.? Grossly intact SKIN: Warm, dry. Normal Color Objective Data Vital Signs Vital Signs: Vital Signs - 24 hr 10/05/22 16:00 10/05/22 21:54 10/05/22 20:00 Temperature 97.3 F L 98.0 F Pulse Rate 73 68 Respiratory Rate 20 18 Blood Pressure 135/77 130/83 Pulse Oximetry 96 94 Oxygen Delivery Room Air 10/06/22 05:23 10/06/22 08:00 10/06/22 10:24 Temperature 98.2 F Pulse Rate 69 Respiratory Rate 20 Blood Pressure 140/81 Pulse Oximetry 94 Oxygen Delivery Room Air Room Air 10/06/22 11:10 Temperature Pulse Rate Respiratory Rate Blood Pressure Pulse Oximetry 95 Oxygen Delivery Room Air Intake/Output Intake/Output: Intake & Output 10/03/22 10/04/22 10/05/22 10/06/22 23:59 23:59 23:59 23:59 Intake Total 1330 240 Output Total 150 300 Balance 1180 -60 Meds/Results Medications: Active Medications Generic Name Dose Route Start Last Admin Trade Name Freq PRN Reason Stop Dose Admin Aspirin 81 mg 10/06/22 09:00 10/06/22 08:21 Aspirin 81 Mg Enteric Tablet PO 81 mg DAILY CHASITY Administration Heparin Sodium (Porcine) 5,000 units 10/05/22 14:00 10/06/22 14:18 Heparin Sodium 5,000 Units/Ml Vial SUB-Q 5,000 units Q8HR CHASITY Administration Ceftriaxone Sodium 2 gm/ 100 mls @ 200 mls/hr 10/05/22 04:00 10/06/22 03:10 Sodium Chloride IVPB 10/09/22 04:29 100 mls/hr Q24H CHASITY Administration Azithromycin 500 mg in 250 mls @ 250 mls/hr 10/05/22 05:00 10/06/22 04:27 Zithromax IVPB 10/09/22 05:59 125 mls/hr Q24H CHASITY Administration Ondansetron HCl 4 mg 10/05/22 00:07 Ondansetron Inj 4 Mg/2 Ml Vial IV PUSH Q4H PRN Nausea Polyethylene Glycol 17 gm 10/06/22 09:00 10/06/22 14:18 Polyethylene Glycol 3350 17 Gm Powd.Pack PO 17 gm QAM S
[2022-10-06 15:02] VITALS: BP 151/93; PULSE 61; RESP 16; TEMP 35.7; O2SAT 94
[2022-10-06] MEDS: BISACODYL 5 MG TABLET EC PO (15:43)
[2022-10-06 20:25] VITALS: BP 143/92; PULSE 74; RESP 16; TEMP 36.2; O2SAT 96
[2022-10-06] MEDS: traZODone HCL 50 MG TABLET PO (20:38)
[2022-10-07 04:40] VITALS: BP 132/87; PULSE 74; RESP 18; TEMP 36.2; O2SAT 94
[2022-10-07] MEDS: cefTRIAXone 2 GM in SODIUM CHLORIDE 0.9% IV 100 ML IVPB (04:45)
[2022-10-07] MEDS: HEPARIN SODIUM 5,000 UNITS/ML VIAL 5000 UNITS SUB-Q ×2 (05:46→14:55)
[2022-10-07 06:21] LABS: Basophils Percent Auto 0.7 % (0.2-1.2); Eosinophils Absolute Auto 0.4 K/mm3 (0-0.3); Eosinophils Percent Auto 6.4 % (0-4.4); Hematocrit 48.3 % (42.0-52.0); Hemoglobin 16.1 g/dL (14.0-18.0); Immature Granulocyte Absolute 0.01 K/mm3 (0.00-0.031); Immature Granulocyte Percent A 0.2 % (0-0.5); Lymphocytes Absolute Auto 2.04 K/mm3 (0.9-3.2); Lymphocytes Percent Auto 35.1 % (18.3-44.2); Mean Corpuscular HGB Conc 33.3 g/dl (32-36); Mean Corpuscular Hemoglobin 31.1 pg (26-34); Mean Corpuscular Volume 93.2 fl (80-100); Mean Platelet Volume 9.5 fl (7.4-10.4); Monocytes Absolute Auto 0.8 K/mm3 (0.1-0.6); Monocytes Percent Auto 13.2 % (2.6-8.5); Neutrophils Absolute Auto 2.6 K/mm3 (1.3-6.7); Neutrophils Percent Auto 44.4 % (45.5-73.1); Platelet Count Result 223 k/mm3 (150-375); Red Blood Count 5.18 M/mm3 (4.6-6.20); Red Cell Distribution Width 12.6 % (11.5-14.5); White Blood Count 5.8 K/mm3 (4.5-10.0)
[2022-10-07 06:44] LABS: Alanine Aminotransferase 63 U/L (6-50); Alkaline Phosphatase 65 U/L (38-126); Anion Gap 6 mmol/L (8-16); Aspartate Amino Transferase 48 U/L (17-59); Bilirubin,Total 0.7 mg/dL (0.2-1.3); Blood Urea Nitrogen 21 mg/dL (9-20); Calcium 8.4 mg/dL (8.4-10.2); Carbon Dioxide 25 mmol/L (22-30); Chloride 103 mmol/L (98-107); Estimated CRCL calculation 47 ml/min; Estimated Glomerular Filt Rate 53; Glucose 147 mg/dL (65-110); Magnesium 2.3 mg/dL (1.6-2.3); Potassium 4.1 mmol/L (3.4-5.0); Sodium 134 mmol/L (137-145)
[2022-10-07] MEDS: ASPIRIN 81 MG ENTERIC TABLET PO (09:37)
[2022-10-07] MEDS: SPIRONOLACTONE 25 MG TABLET PO (09:37)
[2022-10-07] MEDS: polyethylene glycoL 3350 17 GM POWD.PACK PO (09:37)
[2022-10-07 13:36] VITALS: BP 129/78; PULSE 74; RESP 20; TEMP 36.2; O2SAT 98
--- NOTE | 2022-10-07 15:43 | PM.DS ---
DS: Admitting Diagnosis Discharge Date 10/07/2022 Admitting Diagnosis Generalized weakness DS: Discharge Diagnosis Discharge Diagnosis (1) Right hemiparesis: Code(s): G81.91 - Hemiplegia, unspecified affecting right dominant side Status: Acute (2) Generalized weakness: Code(s): R53.1 - Weakness Status: Acute (3) COVID: Code(s): U07.1 - COVID-19 Status: Acute (4) Chronic kidney disease: Code(s): N18.9 - Chronic kidney disease, unspecified Status: Acute DS: Summary Hospital Course Hospital Course: 82-year-old male with past medical history significant for stroke, right-sided hemiparesis, patient presents to the emergency room due to generalized weakness, nausea, vomiting,? muscle weakness, poor appetite, body aches and pains, chills, rigors.?Tested positive for COVID 19. # Acute COVID 19: Initially required oxygen. However was more for comfort. Was taken off promptly. No need for steroids Started on azithromycin and ceftriaxone. Received 1500 mg of azithromycin. Was switch ceftriaxone to Omnicef at discharge Supportive treatment Nasal saline spray Chest x-ray with small lung volumes with mild streaky left basilar atelectasis # H/O Stroke: c/w ASA PT/OT # DVT ppx: Hep SQ # constipation:? Added MiraLax and Dulcolax. Had large bowel movement on 10/07/2022. Continue bowel regimen # CKD stage 3: Stable kidney function Avoid nephrotoxins # Code:Full # Dispo:? Accepted at [facility] bed transfer for further rehabilitation Time Spent with Patient Time attestation: Total time spent providing and/or coordinating discharge services: 40 minutes Exam Narrative: APPEARANCE: Well appearing, no pain, no distress, well-nourished. HEAD: normocephalic, atraumatic. EYES: PERRLA/EOMI, conjunctivae clear. THROAT: Pharynx clear, no exudate. NECK: Supple. No adenopathy, no masses. RESPIRATORY: Airway patent, respirations nonlabored. Clear to auscultation bilaterally, no rales, rhonchi, wheezing. CARDIOVASCULAR: Regular rate and rhythm without murmurs rubs or gallops. ABDOMINAL: Soft, nontender, nondistended, normal bowel sounds MUSCULOSKELETAL: Moves all extremities. Strength/ROM intact, No edema, No calf tenderness. NEURO: Alert. Cranial nerves II through XII intact.? Grossly intact SKIN: Warm, dry. Normal Color DS: Data Data Completed and Pending Labs on day of discharge: Labs from last 24 hours 10/07/22 10/07/22 06:11 06:11 WBC 5.8 RBC 5.18 Hgb 16.1 Hct 48.3 MCV 93.2 MCH 31.1 MCHC 33.3 RDW 12.6 Plt Count 223 MPV 9.5 Immature Gran % (Auto) 0.2 Neut % (Auto) 44.4 L Lymph % (Auto) 35.1 Roane % (Auto) 13.2 H Eos % (Auto) 6.4 H Baso % (Auto) 0.7 Lymph # (Auto) 2.04 Roane # (Auto) 0.8 H Eos # (Auto) 0.4 H Baso # (Auto) 0.0 Abs Immat Gran (auto) 0.01 Absolute Neuts (auto) 2.6 Absolute Nucleated RBC 0.0 Nucleated RBC % 0.0 Sodium 134 L Potassium 4.1 Chloride 103 Carbon Dioxide 25 Anion Gap 6 L BUN 21 H Creatinine 1.30 Estim Creat Clear Calc 47 Estimated GFR 53 L Glucose 147 H Calcium 8.4 Magnesium 2.3 Total Bilirubin 0.7 AST 48 ALT 63 H Alkaline Phosphatase 65 Total Protein 7.0 Albumin 4.0 Imaging Radiologist's impression: ITS Impressions Chest X-Ray 10/04/22 23:14 IMPRESSION: 1. Small lung volumes with mild streaky left basilar atelectasis. Abdomen X-Ray 10/07/22 11:58 IMPRESSION: 1. Unremarkable abdominal radiographs. Discharge Plan Discharge Attending physician on discharge: Emmanuel Leahy Discharging Clinician: Emmanuel Leahy Anticipated Discharge Date/Time: 10/06/22 15:15 Patient Disposition: Hospital Swing Bed Activity: as tolerated Diet: heart healthy Patient Instructions: Antibiotic Form Stand Alone Forms: General Discharge Information Follow-up/Referrals: Nolan,Mary Coles MD [Pr
== END 2022-10-07 21:30 | disposition swing bed (61) ==
LOC: ANHED 21:51 → ANH3MEDSUR 10-05 04:46
PROVIDERS: Internal Medicine; Admitting Provider Internal Medicine; Emergency Provider Emergency Medicine; PCP Internal Medicine; Visit Provider Internal Medicine
DX: I69.351 Hemiplegia and hemiparesis following cerebral infarction affecting right dominant side (principal); U07.1 COVID-19; R53.1 Weakness; I12.9 Hypertensive chronic kidney disease with stage 1 through stage 4 chronic kidney disease, or unspecified chronic kidney disease; N18.9 Chronic kidney disease, unspecified; R29.6 Repeated falls; J98.11 Atelectasis; F41.9 Anxiety disorder, unspecified; G11.9 Hereditary ataxia, unspecified; Z86.69 Personal history of other diseases of the nervous system and sense organs; Z79.82 Long term (current) use of aspirin; Z79.899 Other long term (current) drug therapy
CPT/HCPCS: 36415; 71046; 74018; 80048; 80053; 81001; 83735; 85025; 87637; 96365; 96366; 96367; 96375; 96376; 97161; 97165; 99285; A9270; G0378; J0456; J0696; J1644; J2405

== ENCOUNTER 2022-10-07 22:14 | Inpatient (IN) | payer MEDICARE, SELFPAY ==
[2022-10-07 22:33] VITALS: BMI 30.4
[2022-10-07 22:40] VITALS: BP 144/76; PULSE 76; RESP 17; TEMP 36.4; O2SAT 96
--- NOTE | 2022-10-07 23:31 | ADMGEN ---
This patient, Arnel Marquez, was admitted to 2nd Floor Room 209-1. Patient oriented to hospital policies and general routines including ID bracelet, bed and alarms, pain management, procedures, bathroom and other care routines, personal items, smoking policy, room service/diet, and visiting hours. Information on how to activate the Rapid Response Team has been discussed. Patient encouraged to report perceived risks to care and to ask questions if they do not understand what they are told or what they should do.
[2022-10-07 23:56] VITALS: BP 132/81; PULSE 73; RESP 18; TEMP 36.1; O2SAT 94
--- NOTE | 2022-10-08 06:11 | PC.NURSE ---
Patient confused at times during the night, was not sure where he was, was agitated by this and asking about his . Patient is calm and oriented at present time.
--- NOTE | 2022-10-08 06:13 | PM.IMHP ---
H&P: HPI History of Present Illness Date/Time: 10/08/22 06:13 Chief Complaint: weakness Narrative: 82-year-old male with past medical history significant for stroke, right-sided hemiparesis, patient presents to the [facility] emergency room on 10/04/2022 due to generalized weakness, nausea, vomiting,? muscle weakness, poor appetite, body aches and pains, chills, rigors.?Tested positive for COVID 19. Patient admitted in swing bed for rehabilitation due to decreased balance decreased mobility in severe limited function endurant and/or mobility. [facility] Past Medical History Medical History (Updated 10/05/22 @ 04:04 by Joey Mcdonald MD) Anxiety Cerebellar ataxia CVA (cerebral vascular accident) HTN (hypertension) Hx of Diggs's palsy TIA (transient ischemic attack) Surgical History Surgical History No pertinent past surgical history Family History Family History Father CKD (chronic kidney disease) Sibling Heart disease Breast cancer Mother Lymphoma Social History Social History Smoking status: Never smoker Alcohol intake: never Substance use: never Lack of Transportation: No Lack of Food: Never True Current Housing: I Have Housing Concerned About Future Housing: No Difficulty Paying Gas/Electric Bills: No Difficulty Paying for Meds: No Currently Unemployed: No Education: High School Diploma/GED Difficulty w/ Childcare or Family Care: No Gender identity (if verbalized by the patient): Male Spiritual care concerns: No Agree to blood products: Yes Meds Home Medications and Allergies Home Medications Medication Instructions Recorded Confirmed Type aspirin 81 mg tablet,delayed 81 mg PO DAILY 09/16/19 10/07/22 History release (Jerome Low Dose Aspirin) spironolactone 25 mg tablet 25 mg PO DAILY 09/16/19 10/07/22 History amlodipine 10 mg tablet 10 mg PO DAILY 10/07/22 10/07/22 History bisacodyl 5 mg tablet,delayed 5 mg PO QAM PRN Constipation #30 10/07/22 10/07/22 Rx release (Laxative (bisacodyl)) tabs cefdinir 300 mg capsule 300 mg PO Q12H #8 caps 10/07/22 10/07/22 Rx polyethylene glycol 3350 17 gram 17 g PO QAM #30 ea 10/07/22 10/07/22 Rx oral powder packet (Miralax) Allergies Allergy/AdvReac Type Severity Reaction Status Date / Time No Known Allergies Allergy Verified 10/04/22 23:51 Vital Signs Vital Signs - 24 hr 10/07/22 22:40 10/07/22 22:40 10/07/22 23:56 Temperature 97.5 F L 96.9 F L Pulse Rate 76 73 Respiratory Rate 17 18 Blood Pressure 144/76 H 132/81 Pulse Oximetry 96 94 Oxygen Delivery Room Air Room Air Room Air Exam Narrative: APPEARANCE: Well appearing, no pain, no distress, well-nourished. HEAD: normocephalic, atraumatic. EYES: PERRLA/EOMI, conjunctivae clear. THROAT: Pharynx clear, no exudate. NECK: Supple. No adenopathy, no masses. RESPIRATORY: Airway patent, respirations nonlabored. Clear to auscultation bilaterally, no rales, rhonchi, wheezing. CARDIOVASCULAR: Regular rate and rhythm without murmurs rubs or gallops. ABDOMINAL: Soft, nontender, nondistended, normal bowel sounds MUSCULOSKELETAL: Moves all extremities. Strength/ROM intact, No edema, No calf tenderness. NEURO: Alert? with abnormal speech SKIN: Warm, dry. Normal Color Assessment and Plan Assessment and plan (1) Right hemiparesis: Code(s): G81.91 - Hemiplegia, unspecified affecting right dominant side Status: Acute Assessment and Plan: chronic from her previous stroke (2) Generalized weakness: Code(s): R53.1 - Weakness Status: Acute Assessment and Plan: ? Exhibit tolerance during physical activity as evidenced by a normal fluctuation of vital signs during physical activity. ? Patient will be ability to perform required activities of daily living. ? Provide a
--- NOTE | 2022-10-08 06:36 | PC.NURSE ---
Patient was admitted to the floor at 2210. Patient was very tired, but had difficulty going to sleep. He became confused during the night, and did not remember where he was or why he was here. Patient was re-oriented, and later in the night was able to sleep. Patient has high anxiety, and may need to use sleep medication to make his night time less difficult for him.
[2022-10-08 07:50] VITALS: BP 138/79; PULSE 71; RESP 18; TEMP 36.1; O2SAT 95
[2022-10-08] MEDS: ASPIRIN 81 MG ENTERIC TABLET PO (09:09)
[2022-10-08] MEDS: SPIRONOLACTONE 25 MG TABLET PO (09:09)
[2022-10-08] MEDS: amLODIPine BESYLATE 5 MG TABLET 10 MG PO (09:09)
[2022-10-08] MEDS: polyethylene glycoL 3350 17 GM POWD.PACK PO (09:10)
[2022-10-08] MEDS: CEFDINIR 300 MG CAPSULE PO ×2 (09:10→20:52)
[2022-10-08 16:00] VITALS: BP 131/91; PULSE 73; RESP 20; TEMP 36.5; O2SAT 95
[2022-10-08] MEDS: traZODone HCL 50 MG TABLET PO (20:52)
[2022-10-08] MEDS: LORazepam (*CRX) 0.5 MG TABLET PO (20:52)
[2022-10-08 23:34] VITALS: BP 148/77; PULSE 86; RESP 18; TEMP 36.8; O2SAT 96
--- NOTE | 2022-10-09 00:20 | PC.NURSE ---
Pt requested finger foods for meals in order to eat more independently. Request noted and to be passed on to the AM RN.
[2022-10-09 08:00] VITALS: BP 140/82; PULSE 84; RESP 19; TEMP 36.3; O2SAT 96
[2022-10-09] MEDS: SPIRONOLACTONE 25 MG TABLET PO (10:06)
[2022-10-09] MEDS: amLODIPine BESYLATE 5 MG TABLET 10 MG PO (10:07)
[2022-10-09] MEDS: ASPIRIN 81 MG ENTERIC TABLET PO (10:07)
[2022-10-09] MEDS: CEFDINIR 300 MG CAPSULE PO ×2 (10:07→21:07)
[2022-10-09 16:00] VITALS: BP 152/83; PULSE 95; RESP 17; TEMP 36.4; O2SAT 95
[2022-10-09] MEDS: traZODone HCL 50 MG TABLET PO (21:07)
[2022-10-09 23:03] VITALS: BP 145/90; PULSE 81; RESP 17; TEMP 36.6; O2SAT 94
--- NOTE | 2022-10-10 05:10 | PC.NURSE ---
Pt incontinent of urine and required a full bed change. Clarissa Garcia RN performed this intervention by changing the sheets to clean, dry ones and placed a new depend on the pt after applying barrier cream to the pt's buttocks to prevent skin breakdown. Pt participated w/turning and did well. Bed placed in lowest position, call light w/in reach, side railsx3, and night light on for pt safety.
[2022-10-10 08:00] VITALS: BP 152/84; PULSE 84; RESP 17; TEMP 36.3; O2SAT 97
[2022-10-10] MEDS: ASPIRIN 81 MG ENTERIC TABLET PO (09:08)
[2022-10-10] MEDS: LORazepam (*CRX) 0.5 MG TABLET PO (09:08)
[2022-10-10] MEDS: amLODIPine BESYLATE 5 MG TABLET 10 MG PO (09:08)
[2022-10-10] MEDS: SPIRONOLACTONE 25 MG TABLET PO (09:08)
[2022-10-10] MEDS: TOLNAFTATE 1% POWDER 45 GM BTL 1 APPLIC TOPICAL ×2 (12:49→21:46)
[2022-10-10 16:00] VITALS: BP 129/75; PULSE 85; RESP 18; TEMP 36.4; O2SAT 97
[2022-10-10 23:28] VITALS: BP 149/86; PULSE 74; RESP 19; TEMP 36.3; O2SAT 96
[2022-10-10] MEDS: traZODone HCL 50 MG TABLET PO (23:44)
--- NOTE | 2022-10-11 01:40 | PC.NURSE ---
Pt was placed on bed hernandez, and stated his butt was uncomfortable on the hernandez. This RN adjusted the bed hernandez, and the pt asked, Can I just wear a depend and have a bm in my pants. This RN w/assistance provided by Ofleia Walsh RN educated the pt that that intervention would be regressive to his progress and would not be done. This RN checked q 5 min to see if pt was finished to which the pt stated that he was not. Pt had called on his cellphone stating he was uncomfortable on the bed hernandez, and the pt tried to have this RN communicate w/the through the call light. This RN proceeded to go to the pt's room to communicate w/the to explain the situation. The expressed some concern about the pt's discomfort and was asking for how long the pt was on a bed hernandez. This RN explained how long the pt was one the bed hernandez and explained the pt's previous request to be purposefully incontinent to which the spouse stated that she understands that this facility wants the pt to improve, but is still concerned. This RN explained to the spouse that the bed hernandez has been used at nights since the pt had arrived. This RN also brought up since the pt wanted a more physically tasking PT maybe the pt could use the sarasteady to the commode. The spouse asked what the pt would like to do, and Arnel stated he would rather use the sarasteady and commode. The spouse was accusatory at the beginning of the phone call, but then seemed more at ease and understanding that the staff are only trying to help/improve the pt's abilities. After the phone call ended this RN and Ofelia Walsh RN uses the sarasteady, gait belt, and w/2 assist transferred the pt from the bed to the commode. Pt completed his bm and was cleaned w/hygiene wipes and had barrier cream and barrier spray applied to the area where redness has been noted. Pt then returned back to bed w/the call light, cellphone, water, urinal, w/in reach. Bed in lowest position, side railsx3, and night light/bed alarm on for pt safety.
--- NOTE | 2022-10-11 02:23 | PC.NURSE ---
This RN called the pt's , Doreen, to give an update on how the pt performed using the Sarasteady and commode, and how we are going to use this method continuing forward. This RN also explained why the purposeful incontinence can lead to more issues w/skin breakdown and increase the likelihood of infection occurring. The spouse thanked this RN for the information and was unaware that those issues could arise. The spouse, Doreen, also verbalized appreciation for the call because the pt had forgot to call his back after using the commode. This RN verbalized to Doreen the understanding of concern, and the plan to improve the pt's ability to pivot, and build his strength up so he can return home. This RN also informed Doreen that if she had any questions/concerns about the pt or his plan of care to call the nurse's station, and we would be glad to address said questions/concerns to the best of our ability. Pt's spouse was pleasant at the end of phone call.
[2022-10-11 08:00] VITALS: BP 144/83; PULSE 80; RESP 18; TEMP 36.3; O2SAT 97
[2022-10-11] MEDS: amLODIPine BESYLATE 5 MG TABLET 10 MG PO (09:17)
[2022-10-11] MEDS: ASPIRIN 81 MG ENTERIC TABLET PO (09:18)
[2022-10-11] MEDS: TOLNAFTATE 1% POWDER 45 GM BTL 1 APPLIC TOPICAL ×2 (09:18→20:57)
[2022-10-11] MEDS: SPIRONOLACTONE 25 MG TABLET PO (09:18)
--- NOTE | 2022-10-11 09:51 | PC.NURSE ---
Patient c/o pain in buttocks. Record Keeper applied sacral patch and barrier cream to area, and offered patient pain medication. Patient refused medication and stated that he never takes anything for pain.
--- NOTE | 2022-10-11 14:03 | PC.NURSE ---
Patient still complaining of pain. Wallcovering Hanger continues to offer tylenol, or other pain relievers, and patient states that he does not believe in pain medicine. Wallcovering Hanger explained that tylenol is not narcotic. Patient still refuses. Patient also c/o constipation. Wallcovering Hanger checked intake and output records as well as report sheet. Wallcovering Hanger was told in report that patient has had multiple BMs overnight and they are documented on I&O.
--- NOTE | 2022-10-11 14:47 | PC.NURSE ---
Patient rang call light again complaining of severe constipation. Deckhand Fishing Vessel showed patient that it was reported to advertising copy writer that he had multiple bowel movements overnight. Patient called advertising copy writer a lier. Deckhand Fishing Vessel, again, checked bowel sounds which are normal and active. Deckhand Fishing Vessel offered to get patient up to the commode to try. Patient stated that he knows he can't. Deckhand Fishing Vessel told patient that if he wants to get up to try, to just use his call light and advertising copy writer would be happy to help him.
[2022-10-11 16:00] VITALS: BP 138/76; PULSE 89; RESP 16; TEMP 36.6; O2SAT 96
--- NOTE | 2022-10-11 19:13 | PC.NURSE ---
Patient asked law writer if he could put on a depend so that he could just poop in bed. Snow Removing Supervisor told patient that if he needed to go in bed we could use the bed hernandez, or get up to the commode if he wasn't comfortable on the bed hernandez. Patient refused. Snow Removing Supervisor left the room and patient pooped in the bed.
[2022-10-11 19:50] VITALS: PULSE 89; RESP 16; O2SAT 96
[2022-10-11] MEDS: traZODone HCL 50 MG TABLET PO (20:57)
[2022-10-12] VITALS: BP 136/72; PULSE 95; RESP 18; TEMP 36.8; O2SAT 95
--- NOTE | 2022-10-12 00:30 | PC.NURSE ---
Pt called teletypewriter installer in room to use bedside commode, able to get pt on apolinar steady and to commode with extensive assist and gait belt, pt then called 5 min later, stated he was not done but was unable to go. Attempted to assist pt back to bed, pt unable to stand with 1 assist at that time, required 2 assist with apolinar steady and gait belt to return back to bed, pt states he cannot use to commode to have BM, requested depend to defecate in, pt instructed he needed to try to have BM on commode since he was able to feel when he had to go, pt states he will just poop in bed. Pt then pt was requesting staff hand him his phone because he could not see it, phone was on bedside table next to pt head where he had left it, pt encouraged to open his eyes to see where the phone was, required multiple verbal cues and reminders to open his eyes but was able to reach phone.
--- NOTE | 2022-10-12 00:30 | PC.NURSE ---
Addendum entered by Shannen Macias RN 10/12/22 00:56: Charted for incorrect time, occurred at 0045 Original Note: Pt called contract writer to room, states he is unable to call his on cell phone. When contract writer got into room to assist with cell phone use, pt states he had been incontinent of urine, pt changed and benjamin-care given, when asked why he did not use urinal that was next to pt, he stated he could not find it. Assisted pt to call . No further needs.
[2022-10-12 08:00] VITALS: BP 128/74; PULSE 74; RESP 18; TEMP 36.6; O2SAT 95
[2022-10-12] MEDS: TOLNAFTATE 1% POWDER 45 GM BTL 1 APPLIC TOPICAL ×2 (09:34→20:52)
[2022-10-12] MEDS: SPIRONOLACTONE 25 MG TABLET PO (09:34)
[2022-10-12] MEDS: ASPIRIN 81 MG ENTERIC TABLET PO (09:34)
[2022-10-12] MEDS: amLODIPine BESYLATE 5 MG TABLET 10 MG PO (09:34)
[2022-10-12 16:00] VITALS: BP 140/70; PULSE 88; RESP 16; TEMP 37.3; O2SAT 98
[2022-10-12 20:00] VITALS: PULSE 88; RESP 16; O2SAT 98
[2022-10-12] MEDS: LORazepam (*CRX) 0.5 MG TABLET PO (20:52)
[2022-10-12] MEDS: traZODone HCL 50 MG TABLET PO (20:53)
[2022-10-13] VITALS: BP 141/81; PULSE 91; RESP 18; TEMP 36.5; O2SAT 96
--- NOTE | 2022-10-13 02:33 | PC.NURSE ---
At 0200 rounding, patient asked to be put on the commode as he needed to defecate. Second nurse was called in, as patient needed support to sit up safely. Patient was able to stand up tall enough to place the seat behind him on the Apolinar Stedy, and was rolled to the commode. He needed two tries to stand up so that the seat support could be removed, and he could sit on the commode. After 2 minutes on the commode, patient stated he could not defecate and needed to go back to bed. Patient was told to wait, and try to go. He asked to go back to the bed, and was encouraged to attempt to defecate. After 10 minutes, the 2 nurse team attempted to help the patient stand so the apolinar stedy could be used. Patient did not stand up tall enough. After multiple attempts, a third nurse was called in to help. Patient independently stood tall enough for the placement of the seat, and rode to the bed. Patient stood again, for the seat to be removed, and was successfully returned to bed. At times, patient uses the Apolinar Stedy appropriately, and can move from place to place successfully. This is not consistent, and could become an unsafe situation. Immediately after the patient was put back to bed, he asked the nurse to place the urinal. He was able to urinate 100 mL, and it was emptied.
[2022-10-13 08:00] VITALS: BP 133/88; PULSE 82; RESP 14; TEMP 36.6; O2SAT 97
[2022-10-13] MEDS: amLODIPine BESYLATE 5 MG TABLET 10 MG PO (09:00)
[2022-10-13] MEDS: ASPIRIN 81 MG ENTERIC TABLET PO (09:00)
[2022-10-13] MEDS: SPIRONOLACTONE 25 MG TABLET PO (09:00)
[2022-10-13] MEDS: TOLNAFTATE 1% POWDER 45 GM BTL 1 APPLIC TOPICAL ×2 (09:00→20:14)
--- NOTE | 2022-10-13 13:35 | PC.NURSE ---
Patient up to bedside commode but did have BM or urinate. After laying down back in bed, he immediately stated he had to urinate but was unable to. Urinal given to patient
[2022-10-13 16:00] VITALS: BP 135/88; PULSE 86; RESP 16; TEMP 36.6; O2SAT 97
--- NOTE | 2022-10-13 18:46 | PC.NURSE ---
Attempted magda get patient up to use commode. sat up on page and refuesed to go any further-stated his legs wouldn't work patient used bedpan
[2022-10-13] MEDS: traZODone HCL 50 MG TABLET PO (20:14)
[2022-10-13] MEDS: LORazepam (*CRX) 0.5 MG TABLET PO (20:14)
[2022-10-13] MEDS: ONDANSETRON HCL ODT 4 MG TABLET PO (20:14)
[2022-10-13 23:01] VITALS: BP 126/84; PULSE 84; RESP 17; TEMP 36.5; O2SAT 94
[2022-10-14 07:45] VITALS: BP 120/74; PULSE 71; RESP 18; TEMP 36.4; O2SAT 94
[2022-10-14] MEDS: traMADol HCL (*CRX) 50 MG TABLET PO (08:46)
[2022-10-14] MEDS: TOLNAFTATE 1% POWDER 45 GM BTL 1 APPLIC TOPICAL ×2 (08:47→21:02)
[2022-10-14] MEDS: SPIRONOLACTONE 25 MG TABLET PO (08:47)
[2022-10-14] MEDS: ASPIRIN 81 MG ENTERIC TABLET PO (08:47)
[2022-10-14] MEDS: amLODIPine BESYLATE 5 MG TABLET 10 MG PO (08:47)
[2022-10-14 16:35] VITALS: BP 127/68; PULSE 73; RESP 18; TEMP 36.3; O2SAT 96
[2022-10-14] MEDS: LORazepam (*CRX) 0.5 MG TABLET PO (21:02)
[2022-10-14] MEDS: traZODone HCL 50 MG TABLET PO (21:02)
[2022-10-14 23:06] VITALS: BP 141/88; PULSE 76; RESP 18; TEMP 36.3; O2SAT 94
--- NOTE | 2022-10-15 04:38 | PC.NURSE ---
Pt transferred from bed to commode via sarasteady, gait belt, and 2 assist. Pt somewhat participated, and needed encouragement to follow instruction. Pt attempted to have a bm, but had no success. Pt's benjamin-anal area cleaned from some residual stool w/hygiene wipes, patted dry, and had barrier cream/spray applied to his buttocks. Pt then transferred back to bed. Pt assisted w/getting his legs into bed. Pt started getting teary eyed because he could not have a bm, but was quickly consoled w/encouraging words. Pt stated that his testicles were burning. Upon inspection the testicles are still red and slight moist. Area dried and pt was offered an ice back to help w/burning sensation, but Arnel denied wanting this. Bed placed in lowest position, side railsx3, night light on, and call light; cellphone; water; and urinal w/in reach of pt for pt safety.
[2022-10-15 07:35] VITALS: BP 110/72; PULSE 64; RESP 18; TEMP 36.1; O2SAT 97
[2022-10-15] MEDS: amLODIPine BESYLATE 5 MG TABLET 10 MG PO (09:10)
[2022-10-15] MEDS: SPIRONOLACTONE 25 MG TABLET PO (09:10)
[2022-10-15] MEDS: ASPIRIN 81 MG ENTERIC TABLET PO (09:10)
[2022-10-15] MEDS: TOLNAFTATE 1% POWDER 45 GM BTL 1 APPLIC TOPICAL (09:11)
--- NOTE | 2022-10-15 10:37 | PM.DS ---
DS: Admitting Diagnosis Discharge Date 10/15/2022 Admitting Diagnosis Weakness DS: Discharge Diagnosis Discharge Diagnosis (1) Right hemiparesis: Code(s): G81.91 - Hemiplegia, unspecified affecting right dominant side Status: Acute Assessment and Plan: chronic from her previous stroke (2) Generalized weakness: Code(s): R53.1 - Weakness Status: Acute Assessment and Plan: ? Exhibit tolerance during physical activity as evidenced by a normal fluctuation of vital signs during physical activity. ? Patient will be ability to perform required activities of daily living. ? Provide appropriate nutrition for healing and strength. ? Use appropriate to prevent falls. ? Continue physical therapy/occupational therapy. (3) COVID: Code(s): U07.1 - COVID-19 Status: Acute Assessment and Plan: patient without symptoms Continue supportive care (4) Weakness: Code(s): R53.1 - Weakness Status: Acute (5) Chronic kidney disease: Code(s): N18.9 - Chronic kidney disease, unspecified Status: Acute Assessment and Plan: renal dose medication avoid nephrotoxic agents patient at baseline (6) HTN (hypertension): Qualifiers: Hypertension type: unspecified Qualified Code(s): I10 - Essential (primary) hypertension Code(s): I10 - Essential (primary) hypertension Status: Chronic Assessment and Plan: stable continue home medication (7) Slurred speech: Code(s): R47.81 - Slurred speech Status: Acute Assessment and Plan: status post CVA DS: Summary Hospital Course Reason for hospitalization: Rehab , Weakness, Hospital Course: 82-year-old male with past medical history significant for stroke, right-sided hemiparesis, patient was admitted from [facility] emergency room on 10/04/2022 due to generalized weakness, nausea, vomiting,? muscle weakness, poor appetite, body aches and pains, chills, rigors.? He had tested positive for COVID 19 and has no respiratory symptoms but is weak and was admitted as a swing patient due to poor mobility decreased balance and inability to care for himself these past few days. Patient is very anxious for discharge but is in need of a hospital bed, bedside commode as he is not able to make it to the bathroom he needs close toilet and a sliding board. i FOR HOSPITAL BED WITH AIR LOSS MATTRESS TO D/T BED SORES ON BUTTOCK TO ASSIST IN PRESSURE ULCER REDUCTION WHICH ISN'T FEASIBLE WITH A REGULAR HOSPITAL BED MATTRESS DX HEMIPLEGIA : PT REQUIRES FREQUENT TURNS NOT FEASIBLE IN REGULAR BED. THE PATIENT REQUIRES ELECTRIC CONTROLS DUE TO REDUCE RISK OF ASPIRATION AND TO MAINTAIN GOOD AIRWAY PATIENT IS POST CVA WITH RESIDUAL Patient discharged home with family and home health : Time Spent with Patient Time attestation: Total time spent providing and/or coordinating discharge services: Specific discharge activities: bed, bedside commode, sliding board FOR HOSPITAL BED WITH AIR LOSS MATTRESS TO TO BED SORE ON BUTTOCK TO ASSIST IN PRESSURE ULCER REDUCTION WHICH ISN'T FEASIBLE WITH A REGULAR HOSPITAL BED MATRESS DX HEMIPLEGIAC : PT REQUIRES FREQUENT TURNS NOT FEASIBLE IN REGULAR BED. THE PATIENT REQUIRES ELECTRIC CONTROLS DUE TO . DIAGNOSIS: FOR LOW AIR LOSS MATTRESS TO ASSIST IN PRESSURE ULCER REDUCTION WHICH ISN'T FEASIBLE WITH A REGULAR HOSPITAL BED MATTRESS. DX: Exam Narrative: APPEARANCE: ill appearing, no pain, no distress, well-nourished. HEAD: normocephalic, EYES: PERRLA/EOMI, conjunctivae clear. THROAT: Pharynx clear, no exudate. RESPIRATORY: Airway patent, respirations nonlabored. Clear to auscultation bilaterally CARDIOVASCULAR: Regular rate and rhythm ABDOMINAL: Soft, nontender, nondistended, normal bowel sounds MUSCULOSKELETAL: does not move much max assist and he is a hemiplegia NEURO: Alert? with abnormal speech mostly slurred SK
--- NOTE | 2022-10-15 16:25 | PC.NURSE ---
Patient discharging to home. All discharge instructions and education reviewed with patient. Patient states understanding. All belongings gathered together and sent home with patient. This nurse accompanied patient to front door via wheelchair. Patient transferred from wheelchair to sons car with apolinar noonan. Patient tolerated well. Patient denies any further question at discharge.
--- NOTE | 2022-10-18 11:57 | PC.NURSE ---
Pt states he received and understood the discharge instructions. Pt has no other comments.
--- NOTE | 2022-10-18 13:45 | PCCCNOTE ---
Pt's called and states she spoke to [facility] and they did not get order for home health. CC reviewed chart and pt had chose [facility], called Doreen back and informed her of same. Doreen along with Arnel requested home health be changed to [facility]. Faxed referral to [facility] and spoke to [facility] and cancelled their services. [facility] they talked to Doreen on Tuesday and informed her Arnel's Dr would not sign for therapy if he did not see him first. Doreen did not remember that conversation. Informed Doreen that [facility] would have same issue if his [employer] would not sign orders for them they would not be able to see him. Arnel needs to follow up with his [employer] as he had not seen him since 2020. Doreen states pt can't get out to see [employer], encouraged her to call [facility] and get set up with them to take him to appointments, gave Doreen phone number and she voiced understanding.
--- NOTE | 2022-10-19 13:19 | PCCCNOTE ---
Family called [facility] yesterday asking for a hospital bed, bedside commode and slide board to be ordered and delivered to Arnel's home. Spoke to Monalisa BALLARD who states she will sign order and documentation for requested items.
--- NOTE | 2022-10-19 15:43 | PCCCNOTE ---
Faxed order, demographic sheet and discharge summary for hospital bed, bedside commode and slide board to [facility] [phone]. Requested they deliver equipment to pt's home and to call pt with delivery date/time.
--- NOTE | 2022-10-27 12:10 | PCCCNOTE ---
Additional notes faxed to [facility] for the hospital bed, slide board and bedside commode.
--- NOTE | 2022-10-28 10:59 | PCCCNOTE ---
[facility] states documentation for hospital bed still not correct. Monalisa declines amending her notes again. Sent order for hospital bed, bedside commode and slide board to [facility] today.
--- NOTE | 2022-11-02 10:00 | PCCCNOTE ---
Spoke to Patricia to follow up on equipment that was ordered and they said that the equipment was approved and they have called pt who is to call back if he still wants equipment. Spoke to Doreen, pt's and pt in background and Arnel states he wants to talk to the [facility] person to make sure they feel he would still benefit from the equipment. Phone number for Patricia given to for her to call with their decision.
== END 2022-10-15 16:25 | disposition home health service (06) | DRG 947 ==
PROVIDERS: Admitting Provider Internal Medicine; PCP Internal Medicine; Visit Provider Internal Medicine
DX: R53.1 Weakness (principal); U07.1 COVID-19; I69.351 Hemiplegia and hemiparesis following cerebral infarction affecting right dominant side; I69.321 Dysphasia following cerebral infarction; I12.9 Hypertensive chronic kidney disease with stage 1 through stage 4 chronic kidney disease, or unspecified chronic kidney disease; N18.9 Chronic kidney disease, unspecified; F41.9 Anxiety disorder, unspecified; L89.309 Pressure ulcer of unspecified buttock, unspecified stage
CPT/HCPCS: 97110; 97161; 97165; 97530; 97535; A9270